=== PATIENT | male | born 1980 | race Caucasian/White ===

== ENCOUNTER 2019-05-02 00:35 | Emergency (ER) | payer OTHER, SELFPAY ==
[2019-05-02 00:52] VITALS: BP 180/95; PULSE 101; RESP 20; TEMP 36.6; O2SAT 99
--- NOTE | 2019-05-02 01:00 | ED.NAVMDI ---
HPI - Nausea/Vomiting/Diarrhea General Chief complaint: Nausea/Vomiting/Diarrhea Stated complaint: vomiting Time Seen by Provider: 05/02/19 00:45 Source: patient Mode of arrival: ambulatory Limitations: no limitations History of Present Illness HPI Narrative: Carrington is a 38-year-old male patient. He presents ambulatory to the emergency room. He states that he has been feeling sick orally yesterday. He started vomiting this evening. He has had about 8-10 episodes of watery emesis this evening. There is no blood in the emesis. He has no diarrhea. Denies abdominal pain. He has had congestion for past couple of days. Carrington states that he was diagnosed to have type 2 diabetes a few years ago. Was on Januvia and glimepiride. However he has not taken these medications for last 3 years or so. MD elicited complaint: nausea, vomiting and other ( No diarrhea) Pertinent past history: abdominal surgery Onset (ago): day(s) (1 day) Description of vomiting: watery Associated nausea: Yes Associated abdominal pain: No Location of pain: none Exacerbating factors: none Relieving factors: none Context: other ( no recent travel. Has had cholecystectomy.) Associated symptoms: denies other symptoms Related Data Allergies Allergy/AdvReac Type Severity Reaction Status Date / Time tramadol Allergy Hives Verified 05/02/19 00:51 Review of Systems Review of Systems: All systems reviewed & are unremarkable except as noted in HPI and below Constitutional: Constitutional: Reports as per HPI, Reports no additional constitutional complaints, Denies chills and Denies fever(s) Eyes: Eyes: Reports as per HPI, Reports no additional eye complaints and Denies change in vision ENT: Reports system reviewed and no additional complaints, except as documented, Denies dysphagia, Denies vertigo, Denies dizziness, Denies epistaxis and Denies sore throat Cardiovascular: Cardiovascular: Reports as per HPI and Reports no additional cardiovascular complaints Respiratory: Respiratory: Reports as per HPI, Reports no additional respiratory complaints, Denies cough and Denies dyspnea Gastrointestinal: Gastrointestinal: Reports as per HPI, Denies diarrhea, Reports nausea and Reports vomiting Genitourinary: Genitourinary: Reports no additional male genitourinary complaints, Denies hematuria and Denies dysuria Musculoskeletal: Musculoskeletal: Reports no additional musculoskeletal complaints, Denies back pain and Denies muscle cramps Integumentary/Breasts: Skin/Breast: Reports system reviewed and no additional complaints, except as docu, Reports as per HPI, Denies erythema and Denies rash Neurologic: Reports system reviewed and no additional complaints, except as documented, Denies vertigo, Denies dizziness and Denies syncope Psychiatric: Psychiatric: Reports no additional psychiatric complaints and Reports anxiety Endocrine: Comments: History of type 2 diabetes Hematologic/Lymphatic: Hematologic/Lymphatic: Reports no additional hematologic/lymphatic complaints, Denies easy bleeding and Denies easy bruising Allergic/Immunologic: Allergic/Immunologic: Reports no additional allergic/immunologic complaints, Reports as per HPI, Denies lip swelling and Denies tongue swelling PMFSH Past Medical History Medical History (Updated 05/02/19 @ 02:45 by Akash Mackenzie MD) Hypertension Type 2 diabetes mellitus Surgical History Surgical History (Updated 05/02/19 @ 01:11 by Akash Mackenzie MD) History of cholecystectomy Social History Social History (Updated 02/12/19 @ 22:48 by Aleksander Leigh MD) Smoking status: Never smoker Alcohol intake: never Substance use: never Gender identity (if verbalized by the patient): Male Exam Const: General: no acute distress ( mild distress); No diaphoretic Nutritional Appearance: well nourished and obese Limitations: no limitations HENMT: Head: normal to inspection Ears: TM's normal bilaterally and E
[2019-05-02 01:20] LABS: Basophils Absolute Auto 0.05 K/mm3 (0.00-0.10); Basophils Percent Auto 0.4 % (0.0-1.0); Eosinophils Absolute Auto 0.02 K/mm3 (0.02-0.50); Eosinophils Percent Auto 0.1 % (1.0-6.0); Hematocrit 44.7 % (40.0-54.0); Hemoglobin 15.4 g/dL (14.0-18.0); Immature Granulocyte Absolute 0.07 K/mm3 (0.00-0.00); Immature Granulocyte Percent A 0.5 % (0.0-0.0); Lymphocytes Absolute Auto 1.88 K/mm3 (1.10-4.50); Lymphocytes Percent Auto 13.7 % (18.0-42.0); Mean Corpuscular HGB Conc 34.5 g/dL (32.0-36.0); Mean Corpuscular Hemoglobin 28.9 pg (27.0-31.0); Mean Corpuscular Volume 83.9 fL (78.0-102.0); Mean Platelet Volume 10.8 fl (8.7-11.0); Monocytes Absolute Auto 0.98 K/mm3 (0.10-0.90); Monocytes Percent Auto 7.1 % (2.0-11.0); Neutrophils Absolute Auto 10.7 K/mm3 (1.7-7.2); Neutrophils Percent Auto 78.2 % (50.0-70.0); Platelet Count Result 244 K/mm3 (150-420); Red Blood Count 5.33 M/mm3 (4.70-6.10); Red Cell Distribution Width 12.6 % (11.6-14.4); White Blood Count 13.7 K/mm3 (4.8-10.8)
[2019-05-02] MEDS: ONDANSETRON INJ 4 MG/2 ML VIAL IV PUSH (01:20)
[2019-05-02] MEDS: SODIUM CHLORIDE 0.9% IV 1,000 ML 999 ML IV CONT ×2 (01:21→02:15)
[2019-05-02 01:33] LABS: Hemoglobin A1C 10.8 % (<5.7)
[2019-05-02 01:40] LABS: Alanine Aminotransferase 46 U/L (16-63); Albumin Level 4.4 g/dL (3.4-5.0); Alkaline Phosphatase 84 U/L (46-116); Aspartate Amino Transferase 15 U/L (15-37); Bilirubin,Total 0.5 mg/dL (0.00-1.00); Blood Urea Nitrogen 5 mg/dL (7-18); Calcium 9.4 mg/dL (8.5-10.1); Carbon Dioxide 23 mmol/L (21-32); Chloride 98 mmol/L (98-108); Estimated CRCL calculation 153 ml/min; Estimated Glomerular Filt Rate > 60; Glucose 291 mg/dL (70-99); Lipase 98 U/L (73-393); Osmolality Calculated 292 mOsm/kg (285-295); Sodium 137 mmol/L (136-145); Total Protein 8.8 g/dL (6.4-8.2)
[2019-05-02 01:46] LABS: Appearance Urine Clear (Clear); Bilirubin Urine Negative (Negative); Color Urine Yellow (Yellow); Glucose Urine UA 3+ (Negative); Ketones Urine 2+ (Negative); Leukocyte Esterase Ur Negative LEU/UL (Negative); Nitrate Urine Negative (Negative); Protein Urine 2+ (Negative); Specific Grav Ur >= 1.030 (1.010-1.020); Urobilinogen Urine 0.2 mg/dL (0.2-1.0)
[2019-05-02 01:52] LABS: Add Urine Microscopic? YES; Bacteria Urine None seen /hpf; Blood Urine Trace-Intact (Negative); RBC Urine 0-2 /hpf (0-2); Squamous Epithelial Cell Urine None seen /hpf (Few); WBC Urine 0-3 /hpf (0-3)
[2019-05-02] MEDS: KETOROLAC 30 MG/ML VIAL (*BKC) IV PUSH (02:14)
[2019-05-02 02:34] LABS: Influenza Control Valid (Valid)
[2019-05-02 03:02] VITALS: BP 146/82; PULSE 81; RESP 18; O2SAT 99
== END 2019-05-02 03:06 | disposition home or self-care (01) ==
PROVIDERS: Emergency Provider Surgery
DX: E11.9 Type 2 diabetes mellitus without complications (principal); J01.10 Acute frontal sinusitis, unspecified
CPT/HCPCS: 36415; 80053; 81001; 83036; 83690; 85025; 87804; 96361; 96374; 96375; 99283; 99284; J1885; J2405; J7030

== ENCOUNTER 2019-05-02 16:57 | Emergency (ER) | payer OTHER, SELFPAY ==
--- NOTE | ~2019-05-02 | CT_ITS ---
EXAMINATION: CT sinus w con DATE: 05/02/2019 18:04 INDICATION: Sinus infection, facial pain TECHNIQUE: Computed tomography (CT) of the paranasal sinuses was performed after the administration o f 75 cc of Omnipaque 350 intravenous contrast. The dose-length product (DLP) was 208.19 mGy-cm. Itera tive reconstruction was used. COMPARISON: None FINDINGS: There is normal development and pneumatization of the paranasal sinuses. An air-fluid level is present in the right maxillary sinus. There is obstruction of the ostiomeatal complex on the righ t. There is minimal opacification of the ethmoidal air cells. The left maxillary sinus and bilateral sphenoid sinuses are clear. The mastoid air cells are clear. The nasal septum is midline. No facial f racture is identified. The globes are normal. Visualized soft tissues are unremarkable. No abnormal e nhancement is present. IMPRESSION: 1. Right maxillary and ethmoidal sinusitis. Reviewed, dictated and finalized at [facility]. N/SPA MANAGER
[2019-05-02 17:11] VITALS: BP 181/107; PULSE 105; RESP 18; TEMP 36.6; O2SAT 99
--- NOTE | 2019-05-02 17:25 | ECG_ITS ---
Measurements Intervals [place] Rate: 96 P: 51 MT: 145 QRS: 24 QRSD: 102 T: 29 QT: 356 QTc: 451 Interpretive Statements SINUS RHYTHM NORMAL ECG Electronically Signed On 05-03-2019 9:22:37 INFORMATION LEAD by Eliu Dill D.O.
[2019-05-02] MEDS: SODIUM CHLORIDE 0.9% IV 1,000 ML 999 ML IV CONT (17:40)
[2019-05-02] MEDS: ONDANSETRON INJ 4 MG/2 ML VIAL IV PUSH (17:41)
[2019-05-02] MEDS: HYDROMORPHONE HCL 2 MG/ML VIAL 0.5 MG IV PUSH (17:42)
[2019-05-02 17:45] LABS: Basophils Absolute Auto 0.07 K/mm3 (0.00-0.10); Basophils Percent Auto 0.5 % (0.0-1.0); Eosinophils Absolute Auto 0.03 K/mm3 (0.02-0.50); Eosinophils Percent Auto 0.2 % (1.0-6.0); Hemoglobin 15.2 g/dL (14.0-18.0); Immature Granulocyte Absolute 0.07 K/mm3 (0.00-0.00); Immature Granulocyte Percent A 0.5 % (0.0-0.0); Lymphocytes Absolute Auto 2.07 K/mm3 (1.10-4.50); Lymphocytes Percent Auto 14.1 % (18.0-42.0); Mean Corpuscular HGB Conc 33.8 g/dL (32.0-36.0); Mean Corpuscular Hemoglobin 28.7 pg (27.0-31.0); Mean Corpuscular Volume 84.9 fL (78.0-102.0); Mean Platelet Volume 10.5 fl (8.7-11.0); Monocytes Percent Auto 6.1 % (2.0-11.0); Neutrophils Absolute Auto 11.6 K/mm3 (1.7-7.2); Neutrophils Percent Auto 78.6 % (50.0-70.0); Platelet Count Result 249 K/mm3 (150-420); Red Cell Distribution Width 12.9 % (11.6-14.4); White Blood Count 14.7 K/mm3 (4.8-10.8)
--- NOTE | 2019-05-02 17:49 | ED.HA ---
HPI - Headache General Chief Complaint: Headache Stated Complaint: sinus infection Time Seen by Provider: 05/02/19 17:20 Source: patient Mode of arrival: ambulatory Limitations: no limitations History of Present Illness HPI Narrative: 38-year-old man with untreated hypertension and diabetes comes in today complaining of right-sided head pain which involves his right ear, right cheek, right forehead, right eye and his right upper teeth. He states that his symptoms started 3 days ago and have gotten progressively worse. He had vomiting when he presented here last night and had some dry heaves this afternoon. Sjci-gat-nwsnrtt pain medications are not helping. He denies diarrhea, fever, changes in vision, syncope, stiff neck, or difficulty hearing. He states that he has had some burning right-sided chest pain that does not get better or worse with exertion and is not associated with shortness of breath or sweating. MD elicited complaint: headache Pertinent past history: hypertension Onset (ago): day(s) (3) Onset description: gradually Location: right, frontal, temporal, facial and maxillary Severity: severe Quality & Timing: throbbing Exacerbating factors: none Relieving factors: nothing Context: occurred at rest and recent URI Associated symptoms: nausea and vomiting Treatments prior to arrival: acetaminophen and other ( OTC decongestant) Related Data Allergies Allergy/AdvReac Type Severity Reaction Status Date / Time tramadol Allergy Hives Verified 05/02/19 00:51 Review of Systems Constitutional: Constitutional: Denies chills, Denies fatigue, Denies fever(s) and Denies weakness Eyes: Eyes: Denies change in vision and Denies photophobia ENT: Denies dysphagia, Reports nasal congestion and Denies sore throat Cardiovascular: Cardiovascular: Reports chest pain and Denies radiating jaw, neck or arm pain Respiratory: Respiratory: Denies cough, Denies dyspnea and Denies wheezing Gastrointestinal: Gastrointestinal: Denies abdominal pain, Denies diarrhea, Reports nausea and Reports vomiting Genitourinary: Genitourinary: Denies hematuria, Denies oliguria and Denies dysuria Musculoskeletal: Musculoskeletal: Denies back pain, Denies arthralgias, Denies joint swelling and Denies muscle cramps Integumentary/Breasts: Skin/Breast: Denies pruritus, Denies erythema and Denies rash Neurologic: Reports as per HPI, Denies vertigo, Denies dizziness, Denies syncope, Reports headache(s), Denies focal weakness and Denies numbness Psychiatric: Psychiatric: Denies anxiety and Denies depression Endocrine: Endocrine: Denies polydipsia and Denies polyuria Hematologic/Lymphatic: Hematologic/Lymphatic: Denies easy bleeding and Denies easy bruising Allergic/Immunologic: Allergic/Immunologic: Denies lip swelling and Denies wheezing PMFSH Past Medical History Medical History Hypertension Type 2 diabetes mellitus Surgical History Surgical History History of cholecystectomy Social History Social History Smoking status: Never smoker Alcohol intake: never Substance use: never Gender identity (if verbalized by the patient): Male Exam Const: General: healthy appearing and alert Nutritional Appearance: obese Orientation/consciousness: patient oriented x3 Other: moderate acute pain distress HENMT: Ears: external ears normal, TM's normal bilaterally and EAC's normal Face and sinus: sinus tenderness maxillary ( right TM) Mouth: Yes Normal oral and palatal mucosa present Throat: posterior oropharynx normal and uvula midline Eyes: Conjunctivae: conjunctivae normal Pupils: Equal, round and reactive pupils present EOM: EOMs intact bilaterally Direct Ophthalmoscopy: No photophobia Neck: Neck: normal visual inspection and no lymphadenopathy Resp: Effort & Inspection:
[2019-05-02 18:09] LABS: Anion Gap 19.2 mmol/L (7-16); Blood Urea Nitrogen 7 mg/dL (7-18); Calcium 9.6 mg/dL (8.5-10.1); Carbon Dioxide 22 mmol/L (21-32); Chloride 99 mmol/L (98-108); Estimated CRCL calculation 162 ml/min; Estimated Glomerular Filt Rate > 60; Glucose 270 mg/dL (70-99); Lipase 58 U/L (73-393); Osmolality Calculated 290 mOsm/kg (285-295); Potassium 4.2 mmol/L (3.5-5.1); Sodium 136 mmol/L (136-145)
[2019-05-02 18:11] LABS: Troponin I < 0.02 ng/mL (0.00-0.056)
[2019-05-02 18:17] VITALS: BP 150/79; PULSE 90
== END 2019-05-02 18:58 | disposition home or self-care (01) ==
PROVIDERS: Emergency Provider Emergency Medicine
DX: E11.9 Type 2 diabetes mellitus without complications (principal); I10 Essential (primary) hypertension; J01.10 Acute frontal sinusitis, unspecified
CPT/HCPCS: 36415; 70487; 80048; 83690; 84484; 85025; 93005; 96361; 96365; 96375; 99284; J0696; J1170; J2405; J7030; Q9965

== ENCOUNTER 2019-05-31 03:48 | Emergency (ER) | payer OTHER, SELFPAY ==
--- NOTE | ~2019-05-31 | CT_ITS ---
EXAMINATION: CT abdomen pelvis wo con DATE: 05/31/2019 07:19 INDICATION: Left flank pain. Microhematuria. TECHNIQUE: Computed tomography (CT) of the abdomen and pelvis was performed without intravenous contr ast. Automated exposure control and iterative reconstruction technique were employed. Exam dose: 804 .10 mGy-cm total exam DLP. COMPARISON: 02/12/2019 CT abdomen pelvis with IV contrast material FINDINGS: The lung bases are clear of consolidation. Heart size is within normal range. No pericardia l or pleural effusion. Status post cholecystectomy. No bile duct or pancreatic duct dilatation. Hepatic steatosis. No hepati c, splenic, pancreatic, adrenal or renal space-occupying mass lesion is evident on this limited nonco ntrast examination. There are multiple bilateral nonobstructing kidney stones. There is moderate left hydronephrosis seco ndary to an obstructing 5.5 x 4.0 x 8.0 mm calculus at the left ureteropelvic junction. No right ureteral calculus or right-sided hydroureteronephrosis. Normal caliber of the abdominal aorta. No intraperitoneal or retroperitoneal or pelvic mass lesion or adenopathy or ascites. Small bilateral fat-containing inguinal hernias. Normal appendix. No bowel obstruction or intraperitoneal free air. Very small fat-containing umbilical hernia. Diffuse idiopathic skeletal hyperostosis of the included lower thoracic spine. No suspicious osteolyt ic or osteoblastic lesions are noted. IMPRESSION: Moderate left hydronephrosis secondary to obstructing left ureteropelvic junction 5.5 x 4 x 8 mm calculus Bilateral nephrolithiasis Status post cholecystectomy Hepatic steatosis Reviewed, dictated and finalized at [facility]. Reviewed, dictated and finalized at [facility]. IMPRESSION: Moderate left hydronephrosis secondary to obstructing left uretero pelvic junction 5.5 x 4 x 8 mm calculus Bilateral nephrolithiasis Status post cholecystectomy Hepatic steatosis
[2019-05-31 03:59] VITALS: BP 170/96; PULSE 104; RESP 18; TEMP 37.2; O2SAT 97
--- NOTE | 2019-05-31 04:07 | ED.BACK ---
HPI - Back Pain/Injury General Chief Complaint: Back Pain/Injury Stated Complaint: kidney stones Time Seen by Provider: 05/31/19 04:07 Source: patient Mode of arrival: ambulatory Limitations: no limitations History of Present Illness HPI Narrative: 38-year-old man with a history of kidney stones comes in today complaining of left flank pain that been present for the last 4 days. Patient states he felt feverish and that he has had difficulty urinating. He denies any hematuria. He also has some pain on his right flank tonight. He has had no diarrhea, rash, bruising, or radicular pain. MD elicited complaint: back pain Pertinent past history: kidney stones Onset (ago): day(s) (4) Timing: constant Severity: moderate Quality: sharp Location: left flank and right flank Radiation: none Exacerbating factors: none Relieving factors: none Context: history of kidney stones Associated symptoms: fever Treatments prior to arrival: NSAIDS Related Data Home Medications Medication Instructions Recorded Confirmed glimepiride 2 mg PO DAILY 05/31/19 05/31/19 lisinopril 10 mg PO DAILY 05/31/19 05/31/19 Allergies Allergy/AdvReac Type Severity Reaction Status Date / Time tramadol Allergy Hives Verified 05/02/19 00:51 Review of Systems Constitutional: Constitutional: Reports fever(s) and Reports malaise Eyes: Eyes: Denies blurry vision, Denies change in vision and Denies diplopia ENT: Denies otalgia, Reports nasal congestion, Denies sore throat and Denies throat swelling Cardiovascular: Cardiovascular: Denies chest pain, Denies leg edema and Denies radiating jaw, neck or arm pain Respiratory: Respiratory: Denies chest congestion, Reports cough and Denies dyspnea Gastrointestinal: Gastrointestinal: Reports abdominal pain, Denies diarrhea, Reports nausea and Reports vomiting Genitourinary: Genitourinary: Denies hematuria, Denies dysuria and Reports flank pain Musculoskeletal: Musculoskeletal: Denies arthralgias and Denies joint swelling Integumentary/Breasts: Skin/Breast: Denies pruritus, Denies erythema and Denies rash Neurologic: Reports Normal hearing present, Denies vertigo, Denies dizziness and Denies syncope Psychiatric: Psychiatric: Denies anxiety and Denies depression Allergic/Immunologic: Allergic/Immunologic: Denies urticaria, Denies throat swelling and Denies wheezing PMFSH Past Medical History Medical History (Updated 05/31/19 @ 06:47 by Aleksander Leigh MD) Hypertension Type 2 diabetes mellitus Urolithiasis Surgical History Surgical History History of cholecystectomy Social History Social History Smoking status: Never smoker Alcohol intake: never Substance use: never Gender identity (if verbalized by the patient): Male Exam Const: General: cooperative, alert and other (mild acute distress) Nutritional Appearance: obese Orientation/consciousness: patient oriented x3 Limitations: no limitations HENMT: Head: normal to inspection, normocephalic and atraumatic Mouth: Yes Normal oral and palatal mucosa present and Yes oropharynx normal Eyes: Conjunctivae: conjunctivae normal Pupils: Equal, round and reactive pupils present EOM: EOMs intact bilaterally Resp: Effort & Inspection: normal respiratory effort, no respiratory distress and no stridor Auscultation: clear to auscultation bilaterally, no rales, no rhonchi and no wheezes Cardio: Rate: regular rate Rhythm: regular rhythm Heart sounds: no murmurs Peripheral pulses: Peripheral pulses 2+ throughout GI: Inspection: non-distended GI Palp: Yes abdominal tenderness (mild at left flank) Auscultation: normal bowel sounds Back/Spine/Pelvis: Back: CVA tenderness (mild left) Skin: General skin exam: normal color, no rashes or lesions noted and turgor normal Neuro: General: patient oriented x3 Cranial nerves: Yes CN's II-XII
[2019-05-31] MEDS: KETOROLAC 30 MG/ML VIAL (*BKC) IV PUSH (04:35)
[2019-05-31 04:36] LABS: Basophils Absolute Auto 0.03 K/mm3 (0.00-0.10); Basophils Percent Auto 0.4 % (0.0-1.0); Eosinophils Absolute Auto 0.11 K/mm3 (0.02-0.50); Eosinophils Percent Auto 1.6 % (1.0-6.0); Hemoglobin 14.1 g/dL (14.0-18.0); Immature Granulocyte Absolute 0.02 K/mm3 (0.00-0.00); Immature Granulocyte Percent A 0.3 % (0.0-0.0); Lymphocytes Absolute Auto 2.75 K/mm3 (1.10-4.50); Lymphocytes Percent Auto 40.4 % (18.0-42.0); Mean Corpuscular HGB Conc 34.4 g/dL (32.0-36.0); Mean Corpuscular Hemoglobin 28.8 pg (27.0-31.0); Mean Corpuscular Volume 83.8 fL (78.0-102.0); Mean Platelet Volume 10.5 fl (8.7-11.0); Monocytes Absolute Auto 0.54 K/mm3 (0.10-0.90); Monocytes Percent Auto 7.9 % (2.0-11.0); Neutrophils Absolute Auto 3.4 K/mm3 (1.7-7.2); Neutrophils Percent Auto 49.4 % (50.0-70.0); Platelet Count Result 213 K/mm3 (150-420); Red Blood Count 4.89 M/mm3 (4.70-6.10); Red Cell Distribution Width 12.4 % (11.6-14.4); White Blood Count 6.8 K/mm3 (4.8-10.8)
[2019-05-31] MEDS: ONDANSETRON INJ 4 MG/2 ML VIAL IV PUSH (04:36)
[2019-05-31] MEDS: SODIUM CHLORIDE 0.9% IV 1,000 ML 999 ML IV CONT (04:36)
[2019-05-31 04:39] LABS: Add Urine Microscopic? YES; Appearance Urine Clear (Clear); Bilirubin Urine Negative (Negative); Blood Urine 2+ (Negative); Color Urine Yellow (Yellow); Glucose Urine UA 2+ (Negative); Ketones Urine Trace (Negative); Leukocyte Esterase Ur Negative (Negative); Nitrate Urine Negative (Negative); Protein Urine Negative (Negative); Specific Grav Ur >= 1.030 (1.010-1.020); Urobilinogen Urine 0.2 mg/dL (0.2-1.0)
[2019-05-31 04:44] LABS: Bacteria Urine Trace /hpf; RBC Urine 21-50 /hpf (0-2); Squamous Epithelial Cell Urine None seen /hpf (Few); WBC Urine 0-3 /hpf (0-3)
[2019-05-31 04:49] LABS: Partial Thromboplastin Time 24.2 SEC (22.3-31.6); Prothrombin Time 9.9 Seconds (9.64-11.0)
[2019-05-31 04:52] LABS: Alanine Aminotransferase 71 U/L (16-63); Albumin Level 3.8 g/dL (3.4-5.0); Alkaline Phosphatase 67 U/L (46-116); Anion Gap 12.7 mmol/L (7-16); Aspartate Amino Transferase 25 U/L (15-37); Bilirubin,Total 0.4 mg/dL (0.00-1.00); Blood Urea Nitrogen 9 mg/dL (7-18); Calcium 8.7 mg/dL (8.5-10.1); Carbon Dioxide 26 mmol/L (21-32); Chloride 104 mmol/L (98-108); Estimated CRCL calculation 126 ml/min; Estimated Glomerular Filt Rate > 60; Glucose 255 mg/dL (70-99); Lipase 96 U/L (73-393); Osmolality Calculated 295 mOsm/kg (285-295); Potassium 3.7 mmol/L (3.5-5.1); Sodium 139 mmol/L (136-145); Total Protein 7.3 g/dL (6.4-8.2)
[2019-05-31 06:32] VITALS: BP 134/86; PULSE 85; RESP 20; O2SAT 99
== END 2019-05-31 06:39 | disposition home or self-care (01) ==
PROVIDERS: Emergency Provider Emergency Medicine; PCP Nurse Practitioner
DX: N20.9 Urinary calculus, unspecified (principal)
CPT/HCPCS: 36415; 74176; 80053; 81001; 83690; 85025; 85610; 85730; 87086; 96361; 96374; 96375; 99283; 99284; J1885; J2405; J7030

== ENCOUNTER 2019-06-01 19:37 | Observation (INO) | payer OTHER, SELFPAY ==
--- NOTE | ~2019-06-01 | XR_ITS ---
XR abdomen/kub 1V DATE: 06/02/2019 11:07 INDICATION: Left-sided kidney stone TECHNIQUE: AP projection, 2 views COMPARISON: 05/31/2019 CT abdomen pelvis noncontrast examination FINDINGS: Previously reported 5.5 x 4 x 8 mm calculus reported in left ureteropelvic junction is now situated at the left ureterovesical junction approximately. Bilateral calcified renal stones are noted. Surgical clips, right upper quadrant, consistent with cholecystectomy. No evidence of bowel obstruction. IMPRESSION: Calcified calculus at left ureterovesical junction (previously at left ureteropelvic junc tion on 05/31/2019) Bilateral nephrolithiasis Reviewed, dictated and finalized at [facility]. Reviewed, dictated and finalized at [facility]. IMPRESSION: Calcified calculus at left ureterovesical junction (previously at l eft ureteropelvic junction on 05/31/2019) Bilateral nephrolithiasis
[2019-06-01 19:45] VITALS: BP 197/107; PULSE 74; RESP 17; TEMP 36.6; O2SAT 95
--- NOTE | 2019-06-01 19:54 | ED.BACK ---
HPI - Back Pain/Injury General Chief Complaint: Urogenital-Male Stated Complaint: kidney stones Source: patient Mode of arrival: ambulatory Limitations: no limitations History of Present Illness HPI Narrative: This is a 38-year-old patient that was seen in the emergency department yesterday on May 31, 2019 for kidney stone that was seen on CT scan that measured about 5x4 in the left UVJ with moderate hydronephrosis was given pain medication and tamsulosin at discharge the patient did not follow-up with his primary care physician, felt tired and instead of calling his primary care physician went to sleep. Patient pain in the left flank area persisted with radiation into his left groin area pain rated about a 7/10 was given pain medication at discharge with minimal relief. Currently there is some mild nausea with no vomiting no chest pain, no shortness of breath with no dysuria. Patient also has a history of diabetes and history of hypertension. Has had a decreased appetite secondary to pain and fatigue. MD elicited complaint: back pain Onset (ago): day(s) Timing: intermittent Severity: similar to previous episodes Pain scale (0-10): 7 Quality: dull Location: left flank and left lower back Exacerbating factors: none Relieving factors: medication Related Data Home Medications Medication Instructions Recorded Confirmed glimepiride 2 mg PO DAILY 05/31/19 06/01/19 lisinopril 10 mg PO DAILY 05/31/19 06/01/19 Allergies Allergy/AdvReac Type Severity Reaction Status Date / Time tramadol Allergy Hives Verified 05/02/19 00:51 Review of Systems Review of Systems: All systems reviewed & are unremarkable except as noted in HPI and below PMFSH Past Medical History Medical History Hypertension Type 2 diabetes mellitus Urolithiasis Surgical History Surgical History History of cholecystectomy Social History Social History Smoking status: Never smoker Alcohol intake: never Substance use: never Gender identity (if verbalized by the patient): Male Exam Const: General: no acute distress HENMT: Head: normal to inspection Eyes: Conjunctivae: conjunctivae normal Pupils: Equal, round and reactive pupils present Neck: Neck: normal visual inspection Chest: Chest palpation & inspection: normal inspection of the chest Resp: Effort & Inspection: normal respiratory effort Cardio: Rate: regular rate Rhythm: regular rhythm GI: Inspection: distended Auscultation: normal bowel sounds : General: Yes CVA tenderness Urinary Catheter: Urinary Catheter: urine dark Back/Spine/Pelvis: Back: CVA tenderness Skin: General skin exam: normal color Rashes: no rashes Neuro: General: patient oriented x3, moves all extremities and no meningeal signs Critical Care Time Critical Care Time Critical Care Time: No Discharge Plan Discharge Clinical Impression: Urolithiasis Qualifiers: Urinary calculus location: other lower urinary tract location Qualified Code(s): N21.8 - Other lower urinary tract calculus Prescriptions: No Action glimepiride 2 mg tablet 2 mg PO DAILY RF: 0 lisinopril 10 mg tablet 10 mg PO DAILY RF: 0 tamsulosin 0.4 mg Capsule 0.4 mg PO DAILY Qty: 14 RF: 0 Time of Disposition: 20:23
[2019-06-01] MEDS: KETOROLAC 30 MG/ML VIAL (*BKC) IV PUSH (19:55)
[2019-06-01] MEDS: ONDANSETRON INJ 4 MG/2 ML VIAL IV PUSH (19:55)
[2019-06-01] MEDS: SODIUM CHLORIDE 0.9% IV 1,000 ML 999 ML IV CONT (19:55)
[2019-06-01 20:48] VITALS: BP 197/101; PULSE 79; O2SAT 96
--- NOTE | 2019-06-01 20:48 | PC.NURSE ---
IN FLUIDS INFUSING TO FLOOR
--- NOTE | 2019-06-01 20:49 | PCDIET ---
IV FLUIDS INFUSING TO FLOOR
[2019-06-01] MEDS: SODIUM CHLORIDE 0.9% IV 1,000 ML 75 ML IV CONT (21:14)
[2019-06-01] MEDS: AMLODIPINE BESYLATE 5 MG TABLET 10 MG (21:18)
[2019-06-01 22:16] VITALS: BP 147/92; PULSE 97; RESP 16; TEMP 36.7; O2SAT 98; BMI 37.0
[2019-06-02 00:46] VITALS: BP 152/96; PULSE 78; RESP 18; TEMP 36.9; O2SAT 99
[2019-06-02 05:45] VITALS: BP 168/96; PULSE 78; RESP 16; TEMP 36.9; O2SAT 97
[2019-06-02 05:46] LABS: Basophils Absolute Auto 0.02 K/mm3 (0.00-0.10); Basophils Percent Auto 0.2 % (0.0-1.0); Eosinophils Absolute Auto 0.01 K/mm3 (0.02-0.50); Eosinophils Percent Auto 0.1 % (1.0-6.0); Hematocrit 40.1 % (40.0-54.0); Hemoglobin 13.8 g/dL (14.0-18.0); Immature Granulocyte Absolute 0.05 K/mm3 (0.00-0.00); Immature Granulocyte Percent A 0.4 % (0.0-0.0); Lymphocytes Absolute Auto 1.19 K/mm3 (1.10-4.50); Lymphocytes Percent Auto 10.4 % (18.0-42.0); Mean Corpuscular HGB Conc 34.4 g/dL (32.0-36.0); Mean Corpuscular Hemoglobin 28.8 pg (27.0-31.0); Mean Corpuscular Volume 83.7 fL (78.0-102.0); Mean Platelet Volume 10.7 fl (8.7-11.0); Monocytes Absolute Auto 1.06 K/mm3 (0.10-0.90); Monocytes Percent Auto 9.2 % (2.0-11.0); Neutrophils Absolute Auto 9.1 K/mm3 (1.7-7.2); Neutrophils Percent Auto 79.7 % (50.0-70.0); Platelet Count Result 198 K/mm3 (150-420); Red Blood Count 4.79 M/mm3 (4.70-6.10); Red Cell Distribution Width 12.4 % (11.6-14.4); White Blood Count 11.5 K/mm3 (4.8-10.8)
[2019-06-02 06:02] LABS: Alanine Aminotransferase 69 U/L (16-63); Albumin Level 3.5 g/dL (3.4-5.0); Alkaline Phosphatase 62 U/L (46-116); Anion Gap 13.9 mmol/L (7-16); Aspartate Amino Transferase 26 U/L (15-37); Bilirubin,Total 0.6 mg/dL (0.00-1.00); Blood Urea Nitrogen 9 mg/dL (7-18); Carbon Dioxide 25 mmol/L (21-32); Chloride 103 mmol/L (98-108); Estimated CRCL calculation 117 ml/min; Estimated Glomerular Filt Rate > 60; Glucose 175 mg/dL (70-99); Osmolality Calculated 288 mOsm/kg (285-295); Potassium 3.9 mmol/L (3.5-5.1); Sodium 138 mmol/L (136-145); Total Protein 6.5 g/dL (6.4-8.2)
[2019-06-02 06:05] LABS: Calcium 8.6 mg/dL (8.5-10.1)
[2019-06-02 07:48] LABS: Glucose Point of Care 155 (65-105)
[2019-06-02 07:57] VITALS: BP 152/75; PULSE 89; RESP 16; TEMP 37.4; O2SAT 97
--- NOTE | 2019-06-02 08:20 | PC.NURSE ---
Patient voids in urinal. Urine strained. No stone
[2019-06-02] MEDS: TAMSULOSIN HCL 0.4 MG CAPSULE PO (09:39)
[2019-06-02] MEDS: AMLODIPINE BESYLATE 5 MG TABLET 10 MG PO (09:39)
[2019-06-02] MEDS: lisinopriL 10 MG TABLET PO (09:39)
[2019-06-02] MEDS: AMLODIPINE BESYLATE 5 MG TABLET PO (09:39)
[2019-06-02] MEDS: GLIMEPIRIDE 2 MG TABLET PO (09:39)
--- NOTE | 2019-06-02 09:53 | PM.SD ---
Same Day Admit/Disch: HPI History of Present Illness Chief complaint: kidney stones Narrative: RELL STOLL is a 38 year old male that presented to the ED yesterday due to severe the right pain that radiated to his left groin and nausea. patient has a past medical history of hypertension, diabetes type 2, and urolithiasis. Patient had previously came to ED May 31, [address] indicated Moderate left hydronephrosis secondary to obstructing left ureteropelvic junction 5.5 x 4 x 8 mm calculus. at that time patient was given Flomax with pain medication and instructed to follow-up with his PCP. Patient did not follow-up with PCP and return to the ED on 06/01/2019. Patient was admitted treated for pain and nausea. Today patient's pain is controlled and his nausea has resolved. Patient agrees that he is ready for discharge and will follow-up with primary care physician. I will discharge him with pain medication, anti nausea medication and Flomax. Patient able to tolerate all meals , slept well and ambulate at baseline. Patient denies SOB, CP, palpitation, extremity numbness, lightheadness, dizziness, constipation, diarrhea, or chills or fever. Patient agree that they are ready for discharge and discharge plan. PLACED A CALL TO UROLOGY SPOKE WITH SUSAN JOSE CONCERNING PATIENT'S CONDITION. SUSAN ADVISED THAT PATIENT BE DISCHARGED WITH PAIN MEDICATION AND FLOMAX AND A STRAINER. PATIENT NOTES THAT HE HAS A STRAINER READY. ACCORDING TO CT AND KUB RESULTS STONE APPEARS TO BE PASSED. [facility] Past Medical History Medical History Hypertension Type 2 diabetes mellitus Urolithiasis Surgical History Surgical History History of cholecystectomy Social History Social History Smoking status: Never smoker Second hand tobacco smoke exposure: No Alcohol intake: current Substance use: never Substance use type: does not use Gender identity (if verbalized by the patient): Male Spiritual care concerns: No Agree to blood products: Yes Same Day Admit/Disch: Med Pre-admit Medications Home Medications Medication Instructions Recorded Confirmed Type glimepiride 2 mg PO DAILY 05/31/19 06/01/19 History lisinopril 10 mg PO DAILY 05/31/19 06/01/19 History tamsulosin 0.4 mg PO DAILY #14 cap 05/31/19 06/01/19 Rx hydrocodone-acetaminophen 1 tablet PO Q8H PRN #30 tablet 06/02/19 Rx ondansetron HCl [Zofran] 8 mg PO Q8H PRN #60 tablet 06/02/19 Rx Exam Narrative: Exam Narrative: General: A well-developed, well-nourished male sitting up in bed no acute distress. HEENT: Normocephalic, atraumatic. PERRL, EOMI. Sclerae anicteric. Oral mucosa moist. Oropharynx clear. Neck: Supple. Respiratory: Lungs are clear to auscultation bilaterally. Cardiovascular: Regular rate and rhythm with S1-S2. Gastrointestinal: Abdomen is soft, nontender, and nondistended with positive bowel sounds. No organomegaly. Skin: Warm, dry, and slightly pale.. No rash or lesions on limited exam. Extremities: No cyanosis, clubbing, or edema. Radial and pedal pulses intact. Neurological: Alert. Cranial nerves 2-12 are grossly intact. No gross focal deficits to casual conversation. Psychiatric: Pleasant and cooperative with normal mood and affect. Judgment and insight intact. DS: Data Data Completed and Pending Labs on day of discharge: Labs from last 24 hours 06/02/19 06/02/19 06/02/19 07:46 05:12 05:12 WBC 11.5 H RBC 4.79 Hgb 13.8 L Hct 40.1 MCV 83.7 MCH 28.8 MCHC 34.4 RDW 12.4 Plt Count 198 MPV 10.7 Immature Gran % (Auto) 0.4 H Neut % (Auto) 79.7 H Lymph % (Auto) 10.4 L [place] % (Auto) 9.2 Eos % (Auto) 0.1 L Baso % (Auto) 0.2 Lymph # (Auto) 1.19 [place] # (Auto) 1.06 H Eos # (Auto) 0.01 L Baso # (Auto)
--- NOTE | 2019-06-02 10:18 | PC.NURSE ---
Strained urine. No resulst
--- NOTE | 2019-06-02 11:01 | PC.NURSE ---
Patient transported off of floor for KUB
--- NOTE | 2019-06-02 11:10 | PC.NURSE ---
Patient transported back to floor from xray
--- NOTE | 2019-06-02 13:06 | PC.NURSE ---
Discharge paperwork expained to patient and . Script given for festus. F/U appointments made.
[2019-06-15 11:02] LABS: Glucose Point of Care 181 (65-105)
== END 2019-06-02 13:10 | disposition home or self-care (01) ==
LOC: CHSED 20:26 → CHS2ND 20:32
PROVIDERS: Admitting Provider Emergency Medicine; Emergency Provider Emergency Medicine; PCP Nurse Practitioner; Visit Provider Emergency Medicine
DX: N13.2 Hydronephrosis with renal and ureteral calculous obstruction (principal); R11.0 Nausea; I10 Essential (primary) hypertension; E11.9 Type 2 diabetes mellitus without complications
CPT/HCPCS: 36415; 74018; 80053; 85025; 96360; 96361; 96374; 96375; 99285; A9270; G0378; J1885; J2405; J7030

== ENCOUNTER 2019-10-31 18:08 | Inpatient (IN) | payer OTHER, SELFPAY ==
--- NOTE | ~2019-10-31 | US_ITS ---
US venous doppler [facility] DATE: 11/01/2019 13:44 INDICATION: Elevated d-dimer TECHNIQUE: Real time and color flow imaging. Doppler analysis. COMPARISON: None FINDINGS: The greater saphenous veins are patent. There is spontaneous and phasic flow in the deep veins, with normal augmentation and color flow signa l and normal compression. IMPRESSION: No evidence of deep venous thrombosis of the lower extremities Reviewed, dictated and finalized at Location A. Reviewed, dictated and finalized at location A.
--- NOTE | ~2019-10-31 | XR_ITS ---
EXAMINATION: XR chest 1V portable EXAM DATE: 10/31/2019 20:09 INDICATION: Weak sensitivity for 2 days, shortness of breath. TECHNIQUE: Portable AP frontal chest x-ray was obtained. There is no prior study for comparison. FINDINGS: The lungs are clear. There are no pleural effusions. Cardiac silhouette is prominent but magnified on this AP technique. There is no pneumothorax suspected. The bones and soft tissues are unremarkable. IMPRESSION: Unremarkable chest x-ray exam. Reviewed, dictated and finalized at location A.
--- NOTE | ~2019-10-31 | CT_ITS ---
EXAMINATION: CT abdomen pelvis w con DATE: 11/01/2019 13:02 INDICATION: Leukocytosis. Severe heartburn. TECHNIQUE: Computed tomography (CT) of the abdomen and pelvis was performed with 100 mL Omnipaque-350 intravenous contrast. Automated exposure control and iterative reconstruction technique were employe d. The dose-length product was 1405.91 mGy-cm. COMPARISON: 05/31/2019 FINDINGS: Lung bases are clear. Arch size is normal. No pericardial or pleural effusion. There is edematous wal l thickening the distal esophagus consistent with esophagitis. Diffuse hepatic steatosis. Cholecystec rey clips at the gallbladder fossa. Spleen, pancreas and bilateral adrenal glands are normal. Multip le bilateral nonobstructing renal stones with 9 stones the right kidney the largest measuring 7 mm in maximal diameter and 3 stones in the left kidney the largest measuring 3 mm in maximal diameter. The re are a few subcentimeter low-attenuation likely cysts in the bilateral kidneys which are too small to definitively characterize. Bowels including the appendix are normal. Bladder is normal. No free in traperitoneal gas or fluid. No pathologically enlarged abdominal or pelvic lymphadenopathy. Moderate thoracic and mild lumbar spondylosis. Bilateral fat-containing inguinal hernias, small on the right a nd tiny on the left. IMPRESSION: 1. Edematous wall thickening in the distal esophagus consistent with esophagitis which may be related to reflux given the provided history of heartburn. 2. Bilateral nonobstructing nephrolithiasis. Reviewed, dictated and finalized at location A. IMPRESSION: 1. Edematous wall thickening in the distal esophagus consistent with esophagiti s which may be related to reflux given the provided history of heartburn. 2. Bilateral nonobstructing nephrolithiasis.
--- NOTE | ~2019-10-31 | CT_ITS ---
EXAMINATION: CTA chest PE protocol EXAM DATE: 10/31/2019 23:03 INDICATION: Positive d-dimer. Shortness of breath. TECHNIQUE: Spiral CTA of the chest (pulmonary arteries) was performed with 100 cc Omnipaque 350 intr avenous contrast injection. Images were acquired during the pulmonary arterial phase. Coronal maxi mum intensity projection 3D-reconstructions were created by the technologist on dedicated workstation . Axial, coronal and sagittal reformatted images were reviewed. The dose-length product (DLP) for t his examination was 920.07 mGy-cm. The exposure was tailored according to patient size (auto mA exp osure control), and iterative reconstruction (ASIR) was used as additional dose reduction technique. There is no prior study for comparison. FINDINGS: There is suboptimal pulmonary arterial opacification and some respiratory motion. No centr al pulmonary emboli. Can't confidently evaluate segmental pulmonary arteries. No thoracic aortic dis section. The lungs are clear. There are no pleural or pericardial effusions. Tracheobronchial tr ee is patent. There is no mediastinal, hilar or axillary lymphadenopathy. There is no pneumothora x. Heart normal in size. No evidence of coronary arterial calcification. There are cholecystecto my clips. There is hepatic steatosis. There is thoracic spondylosis without osteoblastic or osteolyt ic lesions identified. IMPRESSION: 1. No central pulmonary emboli. Segmental vessels not confidently evaluated. 2. No acute cardiopulmonary findings. Reviewed, dictated and finalized at location A.
--- NOTE | ~2019-10-31 | XR_ITS ---
EXAMINATION: XR chest 2V DATE: 11/03/2019 09:39 INDICATION: Cough. Leukocytosis. TECHNIQUE: Frontal and lateral views of the chest were obtained on 3 radiographs. COMPARISON: Chest single view 10/31/2019 FINDINGS: The chest demonstrates clear lungs without pneumonia, pleural effusion, or pneumothorax. Th e heart size is normal. Surgical clips in the right upper quadrant are likely from cholecystectomy. IMPRESSION: 1. No acute cardiopulmonary disease. Reviewed, dictated and finalized at location B.
--- NOTE | ~2019-10-31 | CT_ITS ---
EXAMINATION: CT brain wo con EXAM DATE: 11/01/2019 21:13 INDICATION: Slow to move correspond. Transient alteration of awareness. TECHNIQUE: Spiral CT of the head was performed without contrast. Axial, coronal and sagittal images were reviewed. The dose-length product (DLP) for this examination was 605.33 mGy-cm. The exposure w as tailored according to patient size, and iterative reconstruction (ASIR) was used as additional dos e reduction technique. Correlation is made to sinus CT from 05/02/2019. FINDINGS: There is no acute intraparenchymal hemorrhage. No evidence of intraparenchymal brain mass lesion. No evidence of acute infarction. There is no mass effect or midline shift. The ventricles are normal in size. There are no extra-axial collections. There are no acute calvarial fractures. T he orbits are unremarkable. Soft tissue is unremarkable. The visualized sinuses and mastoid air usha ls are well aerated. IMPRESSION: 1. No acute intracranial findings. Reviewed, dictated and finalized at location A.
[2019-10-31 18:29] VITALS: BP 157/89; PULSE 115; RESP 20; TEMP 36.6; O2SAT 98
[2019-10-31 18:52] LABS: Glucose Point of Care 284 (65-105)
--- NOTE | 2019-10-31 19:53 | ED.GENADULT ---
HPI - General Adult General Chief complaint: Headache Stated complaint: tired,weak Source: patient Mode of arrival: ambulatory Limitations: no limitations History of Present Illness HPI narrative: [age] year old male with type 2 DM developed a headache (#3-4/10), fatigue, nausea and vomiting 4 days ago. The vomiting stopped 2 days ago. He has had no diarrhea. He comes in today feeling very thirsty and short of breath. He has had intermittent right upper quadrant abdominal discomfort, no pain presently. He has also had heartburn with frequent burping and pain with swallowing. He is a type 2 diabetic on glimeperide but has not taken his sugars recently because he hasn't been eating. Related Data Home Medications Medication Instructions Recorded Confirmed glimepiride 2 mg PO DAILY 05/31/19 10/31/19 lisinopril 10 mg PO DAILY 05/31/19 10/31/19 Allergies Allergy/AdvReac Type Severity Reaction Status Date / Time tramadol Allergy Hives Verified 05/02/19 00:51 Review of Systems Constitutional: Constitutional: Denies chills and Denies fever(s) ENT: Denies sore throat Cardiovascular: Cardiovascular: Denies chest pain Respiratory: Respiratory: Denies chest congestion and Denies cough Gastrointestinal: Gastrointestinal: Denies no additional gastrointestinal complaints Genitourinary: Genitourinary: Denies dysuria Musculoskeletal: Musculoskeletal: Denies muscle cramps Integumentary/Breasts: Skin/Breast: Denies rash Neurologic: Reports as per HPI (lightheaded) and Reports headache(s) [facility] Past Medical History Medical History Hypertension Type 2 diabetes mellitus Urolithiasis Surgical History Surgical History History of cholecystectomy Social History Social History Smoking status: Never smoker Second hand tobacco smoke exposure: No Alcohol intake: never Substance use: never Substance use type: does not use Gender identity (if verbalized by the patient): Male Spiritual care concerns: No Agree to blood products: Yes Exam Narrative: Exam Narrative: Laying on his right side, hand on bed railing, does not move during my interview, appears weak. Const: General: No diaphoretic Nutritional Appearance: obese Orientation/consciousness: patient oriented x3 HENMT: Head: normal to inspection Face and sinus: abnormal facial exam Mouth: Yes dry mucous membranes Eyes: EOM: EOMs intact bilaterally Neck: Neck: no lymphadenopathy Chest: Chest palpation & inspection: normal inspection of the chest Resp: Effort & Inspection: not labored and no retractions Auscultation: clear to auscultation bilaterally, no rales and no wheezes Cardio: Rate: regular rate Rhythm: regular rhythm Heart sounds: no murmurs GI: GI Palp: Yes Soft to palpation, Yes Tenderness to palpation present (GI) (Tender RUQ to deep palpation. Obesity interfers with identifying contents. ), No Guarding due to palpation present (GI), No Rigid due to palpation and No Rebound tenderness present : General: Yes no CVA tenderness Skin: General skin exam: normal color Wounds: no wounds Neuro: General: patient oriented x3 Extrem: General: normal to inspection and no pedal edema Psych: Appearance: grossly normal Affect: normal affect Thought content: Yes Normal thought content present Course Course Emergency Course: IVF given. Admit to observation Vital Signs Vital signs: Vital Signs Temperature 36.6 C 10/31/19 18:29 Pulse Rate 115 H 10/31/19 18:29 Respiratory Rate 20 10/31/19 18:29 Blood Pressure 157/89 H 10/31/19 18:29 Pulse Oximetry 98 10/31/19 18:29 Temperature 36.6 C 10/31/19 23:45 Pulse Rate 112 H 10/31/19 23:45 Respiratory Rate 20 10/31/19 23:45 Blood Pressure 132/82 10/31/19 23:45 Pulse Oximetry 99
[2019-10-31] MEDS: LACTATED RINGERS 1,000 ML 999 ML IV CONT ×2 (20:03→21:17)
[2019-10-31 20:26] LABS: Basophils Absolute Auto 0.05 K/mm3 (0.00-0.10); Basophils Percent Auto 0.3 % (0.0-1.0); Eosinophils Absolute Auto 0.02 K/mm3 (0.02-0.50); Eosinophils Percent Auto 0.1 % (1.0-6.0); Hematocrit 53.2 % (40.0-54.0); Hemoglobin 18.2 g/dL (14.0-18.0); Immature Granulocyte Absolute 0.15 K/mm3 (0.00-0.00); Immature Granulocyte Percent A 0.9 % (0.0-0.0); Lymphocytes Percent Auto 8.2 % (18.0-42.0); Mean Corpuscular HGB Conc 34.2 g/dL (32.0-36.0); Mean Corpuscular Hemoglobin 28.1 pg (27.0-31.0); Mean Corpuscular Volume 82.1 fL (78.0-102.0); Mean Platelet Volume 10.3 fl (8.7-11.0); Monocytes Absolute Auto 1.58 K/mm3 (0.10-0.90); Monocytes Percent Auto 9.3 % (2.0-11.0); Neutrophils Absolute Auto 13.9 K/mm3 (1.7-7.2); Neutrophils Percent Auto 81.2 % (50.0-70.0); Nucleated Red Blood Cells Absolute Auto 0.02 K/mm3 (0.00-0.00); Nucleated Red Blood Cells Perc 0.1 % (0-0.0); Platelet Count Result 356 K/mm3 (150-420); Red Blood Count 6.48 M/mm3 (4.70-6.10); Red Cell Distribution Width 12.6 % (11.6-14.4); White Blood Count 17.1 K/mm3 (4.8-10.8)
[2019-10-31 20:28] LABS: Appearance Urine Clear (Clear); Bilirubin Urine 1+ (Negative); Color Urine Yellow (Yellow); Glucose Urine UA 3+ (Negative); Ketones Urine 3+ (Negative); Leukocyte Esterase Ur Negative (Negative); Nitrate Urine Negative (Negative); Protein Urine Negative (Negative); Specific Grav Ur 1.025 (1.010-1.020); Urobilinogen Urine 0.2 mg/dL (0.2-1.0)
[2019-10-31 20:37] LABS: Add Urine Microscopic? YES; Bacteria Urine Trace /hpf; Blood Urine Trace (Negative); RBC Urine 0-2 /hpf (0-2); Squamous Epithelial Cell Urine Rare /hpf (Few); WBC Urine 0-3 /hpf (0-3)
[2019-10-31 20:40] VITALS: BP 136/70; PULSE 110; RESP 18; O2SAT 99
[2019-10-31 20:41] LABS: Alanine Aminotransferase 26 U/L (16-63); Albumin Level 3.5 g/dL (3.4-5.0); Alkaline Phosphatase 105 U/L (46-116); Anion Gap 21 mmol/L (8-16); Aspartate Amino Transferase 13 U/L (15-37); Bilirubin,Total 0.9 mg/dL (0.00-1.00); Blood Urea Nitrogen 27 mg/dL (7-18); Calcium 8.8 mg/dL (8.5-10.1); Carbon Dioxide 13 mmol/L (21-32); Chloride 88 mmol/L (98-108); Estimated CRCL calculation 80 ml/min; Estimated Glomerular Filt Rate 53; Osmolality Calculated 277 mOsm/kg (285-295); Potassium 4.8 mmol/L (3.5-5.1); Sodium 122 mmol/L (136-145); Total Protein 7.6 g/dL (6.4-8.2)
[2019-10-31 20:44] LABS: D Dimer 0.79 mg/L (0.19-0.50); Glucose 414 mg/dL (70-99)
[2019-10-31 20:46] LABS: Lactic Acid 2.6 mmol/L (0.4-2.0)
--- NOTE | 2019-10-31 21:00 | PC.NURSE ---
No change in pt status. Pt laying on stretcher lights dimmed. pt eating ice chips.
--- NOTE | 2019-10-31 21:04 | ECG_ITS ---
Measurements Intervals [place] Rate: 113 P: 62 [place]: 122 QRS: 56 QRSD: 85 T: 1 QT: 356 QTc: 490 Interpretive Statements SINUS TACHYCARDIA POSSIBLE LEFT ATRIAL ENLARGEMENT BORDERLINE ST-T WAVE ABNORMALITY- INFERIOR LEADS BASELINE WANDER- I, II, AVR ABNORMAL ECG Electronically Signed On 11-01-2019 7:20:12 CDT by Eliu Dill D.O.
[2019-10-31 21:22] LABS: Base Excess ABG -15.4 mmol/L (0-2); HCO3 ABG 7.9 mmol/L (23-29); Oxygen Content ABG 24.4 %vol (16.0-22.0); Oxygen Saturation ABG 98.2 % (95-97); Oxyhemoglobin 97.6 % (94-100); PO2 ABG 123.9 mmHg (80-90); Total Hemoglobin 17.7 g/dL; pH ABG 7.29 (7.35-7.45)
[2019-10-31 21:25] LABS: Device ROOM AIR; Modified Allen's Test Pass; Site Drawn LEFT RADIAL
[2019-10-31 21:26] LABS: PCO2 ABG 16.8 mmHg (35-45)
[2019-10-31 21:26] LABS: Troponin I < 0.02 ng/mL (0.00-0.056)
[2019-10-31 21:33] LABS: Acetone Small (Negative)
[2019-10-31 21:50] VITALS: BP 145/71; PULSE 110; RESP 18; O2SAT 98
--- NOTE | 2019-10-31 22:00 | PC.NURSE ---
Pt to restroom via wheelchair.
--- NOTE | 2019-10-31 22:39 | PC.NURSE ---
mikep in speaking with pt.
[2019-10-31 22:40] VITALS: BP 145/72; PULSE 103; RESP 18; O2SAT 100
--- NOTE | 2019-10-31 23:35 | ADMGEN ---
This patient, Carrington Avendaño, was admitted to 2nd Floor Room 205-2. Patient oriented to hospital policies and general routines including ID bracelet, bed and alarms, visiting hours, pain management, procedures, bathroom and other care routines, personal items, smoking policy, room service/diet, and visiting hours. Valuables list has been completed. Patient encouraged to report perceived risks to care and to ask questions if they do not understand what they are told or what they should do.
[2019-10-31 23:39] VITALS: BMI 35.4
[2019-10-31 23:45] VITALS: BP 132/82; PULSE 112; RESP 20; TEMP 36.6; O2SAT 99
[2019-10-31] MEDS: LACTATED RINGERS 1,000 ML 250 ML IV CONT (23:55)
[2019-11-01 00:44] LABS: Anion Gap 22 mmol/L (8-16); Blood Urea Nitrogen 25 mg/dL (7-18); Calcium 8.2 mg/dL (8.5-10.1); Carbon Dioxide 11 mmol/L (21-32); Chloride 90 mmol/L (98-108); Estimated CRCL calculation 84 ml/min; Estimated Glomerular Filt Rate 57; Glucose 355 mg/dL (70-99); Lipase 78 U/L (73-393); Osmolality Calculated 274 mOsm/kg (285-295); Potassium 4.9 mmol/L (3.5-5.1); Sodium 123 mmol/L (136-145)
--- NOTE | 2019-11-01 00:51 | PC.NURSE ---
pt resting in bed, iv fluids infusing per order, denies any needs at this time
--- NOTE | 2019-11-01 02:21 | PC.NURSE ---
pt resting in bed, urinal emptied of clear yellow urine, ice water given, iv fluids infusing per order, no other needs at this time
[2019-11-01] MEDS: LACTATED RINGERS 1,000 ML 250 ML IV CONT (04:00)
[2019-11-01 04:30] VITALS: BP 124/65; PULSE 108; RESP 20; TEMP 36.8; O2SAT 100
[2019-11-01 05:21] LABS: Base Excess ABG -16.5 mmol/L (0-2); HCO3 ABG 6.9 mmol/L (23-29); Oxygen Content ABG 24.1 %vol (16.0-22.0); Oxygen Saturation ABG 98.6 % (95-97); Oxyhemoglobin 97.8 % (94-100); PCO2 ABG 14.9 mmHg (35-45); PO2 ABG 143.9 mmHg (80-90); Total Hemoglobin 17.4 g/dL; pH ABG 7.28 (7.35-7.45)
[2019-11-01 05:23] LABS: Basophils Absolute Auto 0.03 K/mm3 (0.00-0.10); Basophils Percent Auto 0.2 % (0.0-1.0); Eosinophils Absolute Auto 0.02 K/mm3 (0.02-0.50); Eosinophils Percent Auto 0.1 % (1.0-6.0); Hematocrit 47.7 % (40.0-54.0); Hemoglobin 16.8 g/dL (14.0-18.0); Immature Granulocyte Absolute 0.16 K/mm3 (0.00-0.00); Immature Granulocyte Percent A 0.9 % (0.0-0.0); Lymphocytes Absolute Auto 1.98 K/mm3 (1.10-4.50); Lymphocytes Percent Auto 10.9 % (18.0-42.0); Mean Corpuscular HGB Conc 35.2 g/dL (32.0-36.0); Mean Corpuscular Hemoglobin 28.7 pg (27.0-31.0); Mean Corpuscular Volume 81.4 fL (78.0-102.0); Mean Platelet Volume 10.4 fl (8.7-11.0); Monocytes Absolute Auto 2.04 K/mm3 (0.10-0.90); Monocytes Percent Auto 11.2 % (2.0-11.0); Neutrophils Percent Auto 76.7 % (50.0-70.0); Platelet Count Result 319 K/mm3 (150-420); Red Blood Count 5.86 M/mm3 (4.70-6.10); Red Cell Distribution Width 12.6 % (11.6-14.4); White Blood Count 18.2 K/mm3 (4.8-10.8)
[2019-11-01 06:05] LABS: Device ROOM AIR; Modified Allen's Test Pass; Site Drawn RIGHT BRACHIAL
[2019-11-01 06:20] LABS: Anion Gap 24 mmol/L (8-16); Blood Urea Nitrogen 22 mg/dL (7-18); Calcium 7.9 mg/dL (8.5-10.1); Carbon Dioxide 8 mmol/L (21-32); Chloride 92 mmol/L (98-108); Estimated CRCL calculation 94 ml/min; Estimated Glomerular Filt Rate > 60; Glucose 304 mg/dL (70-99); Osmolality Calculated 272 mOsm/kg (285-295); Potassium 5.2 mmol/L (3.5-5.1); Sodium 124 mmol/L (136-145)
--- NOTE | 2019-11-01 06:29 | PC.NURSE ---
Dr. Verdugo notified of pt's pCO2 of 14.9. No new orders at this time.
--- NOTE | 2019-11-01 06:49 | PC.NURSE ---
Dr. Verdugo notified of pt's elevated blood sugar. New orders recieved and noted.
--- NOTE | 2019-11-01 07:30 | PC.NURSE ---
Restingi n bed, fluids continue at this time, slight leaking at entry side, no obvious infiltration noted, will keep an eye on, flushes easily, no edema, tired in appearance
[2019-11-01 08:00] VITALS: BP 138/90; PULSE 110; RESP 18; TEMP 36.4; O2SAT 95
--- NOTE | 2019-11-01 08:27 | PM.IMHP ---
H&P: HPI History of Present Illness Date/Time: 11/01/19 08:27 Chief complaint: dehydration vomitting Narrative: Carrington Avendaño is a 38 year old male admitted with a 3-4/10 headache, weakness, fatigue , nausea and vomiting. in the ED he was feeling very thirsty and short of breath. He has had intermittent right upper quadrant abdominal discomfort, no pain in the ED. He has also had heartburn with frequent burping and pain with swallowing. He is a type 2 diabetic on glimeperide but has not taken his sugars because he hasn't been eating. He stated that he was vomiting for 4 days, but that it stopped about 2 days ago. In the ED he stated that he currently had no diarrhea. In the ED he had abdominal tenderness to the right upper quadrant with deep palpation. In the ED his labs showed metabolic acidosis, likely due to his prolonged vomiting , dehydration, uncontrolled diabetes with hyperglycemia, and poor oral intake. his labs showed trace acetones, 3+ urine ketones. His CTA of the chest showed no acute concerns and no PE noted. Labs showed him to be hyperglycemic with blood sugars in the 3 and 400s. When compared to past renal lab work, his creatinine and BUN were elevated. He was also experiencing hyponatremia, likely due to his vomiting and inability to keep fluids down. In the ED his headache resolved after IV fluids. His WBC was 17.1 admission , may be related to dehydration, with no fevers noted, and no known COVID exposure. UA did not show any reasonably VSE UTI at this time. His heart rate was tachy in the 100-1 10s. His EKG showed Sinus TACHYCARDIA, BORDERLINE ST-T WAVE ABNORMALITY- INFERIOR LEADS, ABNORMAL ECG. at admission. He has a history of type 2 diabetes , morbid obesity, May 2019 obstructing kidney stone, and hypertension.His PCP is eMhnaz Gonzáles APN at [facility] in [place]. He last saw her In May [id number]. We should call [phone] to schedule him a follow up appointment. He has gone without meds for the last 1-2 months, despite having HTN and DM. He has not been checking his blood sugars at home. His pharmacy [facility] in [place] confirmed that he has not olive picker any medications since April 2019 and at that time he received a 90 day supply. He denies getting prescriptions at any other pharmacy since then. Today Carrington is very weak and has a flat affect. Overnight he has had no nausea, no vomiting, no diarrhea. He stated that he has been so weak and sick for the last 7 days that he has not taking any medications during those last 7 days and has not been eating or drinking properly for the last 7 days. he is currently denying any chest pain or chest pressure, dyspnea or shortness of breath, denies any abdominal pain or abdominal pressure or cramping. He denies flank pain or back pain at this time. He has significant and profound weakness. No fevers noted overnight, no coughing or wheezing. In the ED his labs showed metabolic acidosis, likely due to his prolonged vomiting , dehydration, uncontrolled diabetes with hyperglycemia, and poor oral intake. his labs showed trace acetones, 3+ urine ketones. His CTA of the chest showed no acute concerns and no PE noted. Labs showed him to be hyperglycemic with blood sugars in the 3 and 400s. When compared to past renal lab work, his creatinine and BUN were elevated. He was also experiencing hyponatremia, likely due to his vomiting and inability to keep fluids down. In the ED his headache resolved after IV fluids. His WBC was 17.1 admission , may be related to dehydration, with no fevers noted, and no known COVID exposure. UA did not show any reasonably VSE UTI at this time. His heart rate was tachy in the 100-1 10s. His EKG showed Sinus TACHYCARDIA, BORDERLINE ST-T WAVE ABNORMALITY- INFERIOR LEADS, ABNORMAL ECG. at admission. If Leukocytosis, renal dysfxn., lactic acidosis, and Tachycardia persists, may need to order Head CT or ECHO. Carrington denies
[2019-11-01 08:34] LABS: Glucose Point of Care 327 (65-105)
--- NOTE | 2019-11-01 08:35 | PC.NURSE ---
glucose at the bedside repeated note to be 327, doctor aware, will follow sliding scale as ordered
[2019-11-01] MEDS: SODIUM CHLORIDE 0.9% IV 1,000 ML 150 ML IV CONT ×2 (08:36→10:10)
--- NOTE | 2019-11-01 08:36 | PC.NURSE ---
Fluids increased to bolus rate
[2019-11-01 08:38] LABS: Magnesium 2.4 mg/dL (1.8-2.4); Phosphorus 2.9 mg/dL (2.6-4.7)
[2019-11-01] MEDS: PANTOPRAZOLE SODIUM IV 40 MG VIAL IV PUSH ×2 (09:21→21:48)
[2019-11-01] MEDS: ENOXAPARIN 40 MG/0.4 ML SYRINGE SUB-Q (09:23)
[2019-11-01 10:18] LABS: Lactic Acid 1.3 mmol/L (0.4-2.0)
--- NOTE | 2019-11-01 10:30 | PC.NURSE ---
fluids infusing, site leaking slightly at insertion site, no edema noted
--- NOTE | 2019-11-01 11:30 | PC.NURSE ---
fluids infusing, awaiting imaging to be done
[2019-11-01 11:45] LABS: Glucose Point of Care 331 (65-105)
[2019-11-01 12:00] VITALS: BP 143/78; PULSE 108; RESP 18; TEMP 36.4; O2SAT 95
[2019-11-01 12:07] LABS: Basophils Absolute Auto 0.03 K/mm3 (0.00-0.10); Basophils Percent Auto 0.2 % (0.0-1.0); Hematocrit 46.6 % (40.0-54.0); Hemoglobin 15.8 g/dL (14.0-18.0); Immature Granulocyte Absolute 0.13 K/mm3 (0.00-0.00); Immature Granulocyte Percent A 0.8 % (0.0-0.0); Lymphocytes Percent Auto 12.2 % (18.0-42.0); Mean Corpuscular HGB Conc 33.9 g/dL (32.0-36.0); Mean Corpuscular Hemoglobin 28.2 pg (27.0-31.0); Mean Corpuscular Volume 83.1 fL (78.0-102.0); Mean Platelet Volume 10.8 fl (8.7-11.0); Monocytes Absolute Auto 1.84 K/mm3 (0.10-0.90); Monocytes Percent Auto 10.7 % (2.0-11.0); Neutrophils Absolute Auto 13.2 K/mm3 (1.7-7.2); Neutrophils Percent Auto 76.1 % (50.0-70.0); Platelet Count Result 302 K/mm3 (150-420); Red Blood Count 5.61 M/mm3 (4.70-6.10); Red Cell Distribution Width 12.7 % (11.6-14.4); White Blood Count 17.3 K/mm3 (4.8-10.8)
[2019-11-01 12:25] LABS: D Dimer 1.44 mg/L (0.19-0.50)
[2019-11-01 12:29] LABS: Alanine Aminotransferase 20 U/L (16-63); Albumin Level 2.7 g/dL (3.4-5.0); Alkaline Phosphatase 77 U/L (46-116); Anion Gap 22 mmol/L (8-16); Aspartate Amino Transferase 13 U/L (15-37); Bilirubin,Total 0.8 mg/dL (0.00-1.00); Blood Urea Nitrogen 21 mg/dL (7-18); Calcium 7.2 mg/dL (8.5-10.1); Carbon Dioxide 10 mmol/L (21-32); Chloride 94 mmol/L (98-108); Estimated CRCL calculation 97 ml/min; Estimated Glomerular Filt Rate > 60; Glucose 334 mg/dL (70-99); Osmolality Calculated 278 mOsm/kg (285-295); Potassium 4.6 mmol/L (3.5-5.1); Sodium 126 mmol/L (136-145); Total Protein 6.1 g/dL (6.4-8.2)
--- NOTE | 2019-11-01 12:30 | PC.NURSE ---
currently in imaging department
[2019-11-01 12:33] LABS: CRP 0.5 mg/dL (0.0-0.9)
[2019-11-01 13:08] LABS: Erythrocyte Sedimentation Rate 2 mm/hr (0-15)
--- NOTE | 2019-11-01 13:30 | PC.NURSE ---
returned from imaging
--- NOTE | 2019-11-01 13:42 | PC.NURSE ---
Requesting IV site be moved, fluids off at this time, slow to respond but does respond appropriately
--- NOTE | 2019-11-01 14:01 | PC.NURSE ---
Lunch tray provided
[2019-11-01 14:33] LABS: Amphetamine Screen Urine Negative (Negative); Barbiturate Screen Urine Negative (Negative); Benzodiazepines Screen Urine Negative (Negative); Cannabinoid Screen Urine Negative (Negative); Cocaine Screen Urine Negative (Negative); Methadone Screen Urine Negative (Negative); Opiate Screen Urine Negative (Negative); Phencyclidine Screen Urine Negative (Negative)
[2019-11-01 14:46] LABS: Ethanol < 3 mg/dL (0-6)
[2019-11-01 15:44] LABS: Acetaminophen 2 ug/mL (10-30); Salicylate 2.8 mg/dL (2.8-20.0)
[2019-11-01 16:00] VITALS: BP 132/82; PULSE 96; RESP 16; TEMP 36.7; O2SAT 98
[2019-11-01 16:51] LABS: Glucose Point of Care 233 (65-105)
--- NOTE | 2019-11-01 17:00 | ECG_ITS ---
Measurements Intervals [place] Rate: 102 P: 58 ID: 140 QRS: 53 QRSD: 86 T: -6 QT: 401 QTc: 523 Interpretive Statements SINUS TACHYCARDIA BORDERLINE ST-T WAVE ABNORMALITY- INFERIOR LEADS BASELINE WANDER- V1-V2 BORDERLINE ECG Electronically Signed On 11-01-2019 20:14:42 CDT by Eliu Dill D.O.
[2019-11-01 20:00] VITALS: BP 120/74; PULSE 106; RESP 18; TEMP 36.4; O2SAT 98
[2019-11-01 20:40] LABS: Glucose Point of Care 306 (65-105)
[2019-11-01 21:39] LABS: Anion Gap 16 mmol/L (8-16); Blood Urea Nitrogen 16 mg/dL (7-18); Calcium 8.4 mg/dL (8.5-10.1); Carbon Dioxide 15 mmol/L (21-32); Chloride 95 mmol/L (98-108); Estimated CRCL calculation 89 ml/min; Estimated Glomerular Filt Rate > 60; Glucose 313 mg/dL (70-99); Osmolality Calculated 275 mOsm/kg (285-295); Potassium 4.3 mmol/L (3.5-5.1); Sodium 126 mmol/L (136-145)
[2019-11-01] MEDS: ENOXAPARIN 120 MG/0.8 ML SYRINGE SUB-Q (21:48)
--- NOTE | 2019-11-01 23:23 | PM.EVENT ---
Event Note Event Note Event Note: I have examined the patient reviewed the chart. I discussed the patient's care with A Perfecto IRENE and agree with her assessment and plan.
[2019-11-02] VITALS (11 sets, daily range): BP systolic 98–149; BP diastolic 49–89; PULSE 70–124; RESP 16–18; TEMP 36.2–37.1; O2SAT 93–99
[2019-11-02] MEDS: SODIUM CHLORIDE 0.9% IV 1,000 ML 150 ML IV CONT ×2 (02:04→09:44)
[2019-11-02 05:35] LABS: Hematocrit 42.5 % (40.0-54.0); Hemoglobin 14.7 g/dL (14.0-18.0); Mean Corpuscular HGB Conc 34.6 g/dL (32.0-36.0); Mean Corpuscular Hemoglobin 28.3 pg (27.0-31.0); Mean Corpuscular Volume 81.9 fL (78.0-102.0); Mean Platelet Volume 9.9 fl (8.7-11.0); Platelet Count Result 232 K/mm3 (150-420); Red Blood Count 5.19 M/mm3 (4.70-6.10); Red Cell Distribution Width 12.9 % (11.6-14.4); White Blood Count 9.8 K/mm3 (4.8-10.8)
[2019-11-02 05:51] LABS: Alanine Aminotransferase 21 U/L (16-63); Albumin Level 2.7 g/dL (3.4-5.0); Alkaline Phosphatase 70 U/L (46-116); Anion Gap 16 mmol/L (8-16); Aspartate Amino Transferase 14 U/L (15-37); Bilirubin,Total 0.8 mg/dL (0.00-1.00); Blood Urea Nitrogen 13 mg/dL (7-18); Calcium 7.9 mg/dL (8.5-10.1); Carbon Dioxide 16 mmol/L (21-32); Chloride 98 mmol/L (98-108); Estimated CRCL calculation 96 ml/min; Estimated Glomerular Filt Rate > 60; Glucose 300 mg/dL (70-99); Osmolality Calculated 281 mOsm/kg (285-295); Potassium 4.1 mmol/L (3.5-5.1); Sodium 130 mmol/L (136-145); Total Protein 5.9 g/dL (6.4-8.2)
--- NOTE | 2019-11-02 07:45 | PM.IMPN ---
Progress Note: A&P Assessment and Plan (1) Esophagitis, acute: Code(s): K20.9 - Esophagitis, unspecified Status: Acute Assessment and Plan: IMPROVING. nausea and vomiting for days at home. No nausea or vomiting her diarrhea today, his appetite is very slowly returning, no heartburn noted today changing IV Protonix to oral Tums and Pepcid are ordered p.r.n. negative occult blood ruling out food poisoning - ordered full panel of stool cultures needs to follow-up with PCP DR. Pulido in [place], [place] OR Mehnaz Gonzáles APN at [facility] in [place]. call [phone] to schedule him a follow up appointment. 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 No Acute S/S at this time. had an obstructing kidney stone in May of this year denies any flank pain today UA showed trace blood and 1+ bili, no RBCs. ordered a CT abdomen pelvis: There is edematous wall thickening the distal esophagus consistent with esophagitis. Diffuse hepatic steatosis. Multiple bilateral nonobstructing renal stones with 9 stones the right kidney the largest measuring 7 mm in maximal diameter and 3 stones in the left kidney the largest measuring 3 mm in maximal diameter. There are a few subcentimeter low-attenuation likely cysts in the bilateral kidneys which are too small to definitively characterize. Bowels including the appendix are normal. IMPRESSION:1. Edematous wall thickening in the distal esophagus consistent with esophagitis which may be related to reflux given the provided history of heartburn. 2. Bilateral nonobstructing nephrolithiasis. his creatinine was 1.5 at admission, received over 2 L of IV fluids, and is now 1.21 Carrington stated that he passed a kidney stone at work, could not catch it, and therefore never did follow-up with a urologist. (3) Hyperglycemia due to type 2 diabetes mellitus: Code(s): E11.65 - Type 2 diabetes mellitus with hyperglycemia Status: Acute Assessment and Plan: history of type 2 diabetes , morbid obesity, kidney stones He has gone without meds for the last 1-2 months, despite having HTN and DM. He has not been checking his blood sugars at home. His pharmacy [facility] in [place] confirmed that he has not bean picker machine operator any medications since April 2019 and at that time he received a 90 day supply. He denies getting prescriptions at any other pharmacy since then. diabetic diet - Patient is refusing diet drinks, states he can't drink diet soda. nausea/vomiting /diarrhea resolved bedside glucose checks a.c. HS restarted patient on 2 mg of glimepiride, started him also on 50 mg of Januvia, and changed sliding scale insulin to low-dose p.r.n. Must keep seeing PCP Dr. Pulido or Mehnaz Gonzáles APN at [facility] in [place]. call [phone] to schedule him a follow up appointment. cannot risk running out of medications again as well as needs to know how to check his blood sugars at home for both high and lows Consulted school childcare attendant to assist with making sure the patient can afford his medications, and get his medications, and called his significant other and girlfriend with the patient's permission to discuss how we can help Carrington to remember to take his medications. (4) Dehydration with hyponatremia: Code(s): E86.0 - Dehydration; E87.1 - Hypo-osmolality and hyponatremia Status: Acute Assessment and Plan: Na 122 at admission, now improved to 130 low sodium may be causing his profound weakness hyponatremia from his days of
[2019-11-02 08:03] LABS: Glucose Point of Care 238 (65-105)
[2019-11-02] MEDS: ENOXAPARIN 120 MG/0.8 ML SYRINGE SUB-Q ×2 (09:44→20:07)
[2019-11-02] MEDS: PANTOPRAZOLE SODIUM IV 40 MG VIAL IV PUSH (09:45)
--- NOTE | 2019-11-02 10:06 | PC.NURSE ---
0850 had ashort run of 150 hr. casting associate aware and erp
[2019-11-02] MEDS: SODIUM CHLORIDE 0.9% IV 1,000 ML 125 ML IV CONT ×2 (10:31→20:35)
--- NOTE | 2019-11-02 10:51 | ECHO_ITS ---
Patient Info Name: Carrington Avendaño Age: 38 years : 1980 Gender: Male Ht: 71 in Wt: 251 lbs BSA: 2.43 m2 HR: 101 bpm BP: 140 / 85 mmHg Heart Rhythm: Sinus Rhythm Technical Quality: Fair Exam Date: 11/02/2019 1:39 PM Exam Location: [facility] Patient Status: Inpatient Admit Date: 11/02/2019 Staff Ordering Physician: Yvette Grove NP Salesperson New Cars: Bety Conrad RDCS Attending Provider: Aleksander Verdugo MD Referring Physician: Perfecto KAN; Exam Type: CA echo dop color flow w con Study Info Indications R94.31 - Abnormal electrocardiogram ECG EKG I10 - Essential (primary) hypertension Complete two-dimensional, color flow and Doppler transthoracic echocardiogram is performed. Strain analysis performed. History/Risk Factors Hypertension: Yes Diabetic Therapy: Insulin Obesity: Yes Diabetes Mellitus: Yes Summary 1. Left ventricular chamber dimension is normal. 2. Left ventricular systolic function is normal, estimated at 60-65%. 3. There is mildly increased left ventricular wall thickness. 4. The left ventricular diastolic function is normal. 5. E/e' 9 is minimally elevated. 6. Global longitudinal strain is abnormal at -11.9%. 7. Left atrial chamber dimension is mildly enlarged. Recommendations * Continue medical therapy for diabetes. Left Ventricle E/e' 9 is minimally elevated. Global longitudinal strain is abnormal at -11.9%. Left ventricular chamber dimension is normal. Left ventricular systolic function is normal, estimated at 60-65%. There is mildly increased left ventricular wall thickness. The left ventricular diastolic function is normal. Right Ventricle Right ventricular chamber dimension is normal. Right ventricular systolic function is normal. Left Atria Left atrial chamber dimension is mildly enlarged. Right Atria Right atrial chamber dimension is normal. Aortic Valve The aortic valve is trileaflet. There is no aortic valve stenosis. There is no aortic valve regurgitation. Pulmonic Valve There is no pulmonic regurgitation. Mitral Valve There is no mitral valve stenosis. There is no mitral valve regurgitation. Tricuspid Valve There is no tricuspid valve regurgitation. Pericardium/Pleural There is no pericardial effusion. Inferior Vena Cava IVC is not well seen. Aorta The aortic root size at the sinus of Valsalva is normal. Left Ventricular Outflow Tract Name Value Normal LVOT 2D LVOT Diameter 2.46 cm LVOT Doppler LVOT Peak Velocity 139.46 cm/s LVOT Peak Gradient 8 mmHg LVOT Mean Gradient 4 mmHg LVOT VTI 20.99 cm LVOT VTI/AV VTI Ratio 0.79 LVOT Stroke Volume 99.39 ml Mitral Valve Name Value Normal MV Doppler
--- NOTE | 2019-11-02 10:51 | PC.NURSE ---
NS 125ml/hr stopped due to positional IV. Instructed patient to drink more fluids. Strict I&O
[2019-11-02 10:53] LABS: Magnesium 2.3 mg/dL (1.8-2.4); Thyroid Stimulating Hormone Reflex 0.57 u/IU/mL (0.36-3.74)
[2019-11-02 11:41] LABS: Glucose Point of Care 246 (65-105)
[2019-11-02] MEDS: METOPROLOL TARTRATE 25 MG TABLET 12.5 MG PO ×2 (11:50→20:06)
[2019-11-02] MEDS: GLIMEPIRIDE 2 MG TABLET PO (11:51)
[2019-11-02] MEDS: lisinopriL 5 MG TABLET PO (11:51)
--- NOTE | 2019-11-02 13:21 | PCOTNOTE ---
Patient is discharged from skilled OT services as he has met his goals and demonstrates the ability to perform self care and functional mobility with independence. MS
[2019-11-02 15:01] LABS: Glucose Point of Care 260 (65-105)
[2019-11-02] MEDS: PANTOPRAZOLE 40 MG TABLET PO (20:06)
[2019-11-02 21:21] LABS: Glucose Point of Care 345 (65-105)
[2019-11-03] VITALS (7 sets, daily range): BP systolic 96–127; BP diastolic 48–82; PULSE 68–114; RESP 18–20; TEMP 36.3–36.8; O2SAT 96–98
[2019-11-03 00:09] LABS: Glucose Point of Care 263 (65-105)
[2019-11-03] MEDS: SODIUM CHLORIDE 0.9% IV 1,000 ML 125 ML IV CONT (03:03)
[2019-11-03 03:41] LABS: Glucose Point of Care 280 (65-105)
[2019-11-03 05:35] LABS: Hematocrit 41.2 % (40.0-54.0); Hemoglobin 13.9 g/dL (14.0-18.0); Mean Corpuscular HGB Conc 33.7 g/dL (32.0-36.0); Mean Corpuscular Hemoglobin 27.9 pg (27.0-31.0); Mean Corpuscular Volume 82.6 fL (78.0-102.0); Mean Platelet Volume 10.4 fl (8.7-11.0); Platelet Count Result 197 K/mm3 (150-420); Red Blood Count 4.99 M/mm3 (4.70-6.10); Red Cell Distribution Width 13.2 % (11.6-14.4); White Blood Count 6.5 K/mm3 (4.8-10.8)
[2019-11-03 05:44] LABS: Anion Gap 7 mmol/L (8-16); Blood Urea Nitrogen 10 mg/dL (7-18); Calcium 8.4 mg/dL (8.5-10.1); Carbon Dioxide 27 mmol/L (21-32); Chloride 102 mmol/L (98-108); Estimated CRCL calculation 119 ml/min; Estimated Glomerular Filt Rate > 60; Glucose 240 mg/dL (70-99); Osmolality Calculated 289 mOsm/kg (285-295); Potassium 3.5 mmol/L (3.5-5.1); Sodium 136 mmol/L (136-145)
[2019-11-03 07:52] LABS: Glucose Point of Care 273 (65-105)
[2019-11-03] MEDS: METOPROLOL TARTRATE 25 MG TABLET 12.5 MG PO (09:34)
[2019-11-03] MEDS: lisinopriL 5 MG TABLET PO (09:35)
[2019-11-03] MEDS: PANTOPRAZOLE 40 MG TABLET PO (09:35)
[2019-11-03] MEDS: GLIMEPIRIDE 2 MG TABLET PO (09:35)
[2019-11-03] MEDS: ENOXAPARIN 120 MG/0.8 ML SYRINGE SUB-Q (09:40)
--- NOTE | 2019-11-03 11:19 | PM.DS ---
DS: Admitting Diagnosis Admitting Diagnosis Admitting Diagnosis: dehydration vomitting <Yvette Grove NP - Last Filed: 11/03/19 14:33> DS: Discharge Diagnosis Discharge Diagnosis (1) Esophagitis, acute: Code(s): K20.9 - Esophagitis, unspecified <Yvette Grove NP - Last Filed: 11/03/19 14:33> Status: Acute <Yvette Grove NP - Last Filed: 11/03/19 14:33> Assessment and Plan: IMPROVING. nausea and vomiting for days at home. No nausea or vomiting or diarrhea here, appetite has returned, no heartburn noted today continue oral daily Protonix at discharge Tums and Pepcid are ordered p.r.n. negative occult blood needs to follow-up with PCP DR. Pulido in [place], [place] OR Mehnaz Gonzáles APN at [facility] in [place]. call [phone] to schedule him a follow up appointment. prior to discharge: he needs to have the ability to pay for and product picker and get his prescription medications as well as the ability to check his blood sugars at home he will need to get stronger to improve his acid reflux as well as his ability to swallow, improve his appetite - may benefit from rehab therapy with PT and OT PT eval in place <Yvette Grove NP - Last Filed: 11/03/19 14:33> (2) Bilateral nephrolithiasis: Code(s): N20.0 - Calculus of kidney <Yvette Grove NP - Last Filed: 11/03/19 14:33> Status: Acute <Yvette Grove NP - Last Filed: 11/03/19 14:33> Assessment and Plan: CHRONIC. No Acute S/S at this time. had an obstructing kidney stone in May of this year denies any flank pain today UA showed trace blood and 1+ bili, no RBCs. ordered a CT abdomen pelvis: There is edematous wall thickening the distal esophagus consistent with esophagitis. Diffuse hepatic steatosis. Multiple bilateral nonobstructing renal stones with 9 stones the right kidney the largest measuring 7 mm in maximal diameter and 3 stones in the left kidney the largest measuring 3 mm in maximal diameter. There are a few subcentimeter low-attenuation likely cysts in the bilateral kidneys which are too small to definitively characterize. Bowels including the appendix are normal. IMPRESSION:1. Edematous wall thickening in the distal esophagus consistent with esophagitis which may be related to reflux given the provided history of heartburn. 2. Bilateral nonobstructing nephrolithiasis. his creatinine was 1.5 at admission, received over 2 L of IV fluids, and is now 1.21 Carrington stated that he passed a kidney stone at work, could not catch it, and therefore never did follow-up with a urologist. <Yvette Grove NP - Last Filed: 11/03/19 14:33> (3) Hyperglycemia due to type 2 diabetes mellitus: Code(s): E11.65 - Type 2 diabetes mellitus with hyperglycemia <Yvette Grove NP - Last Filed: 11/03/19 14:33> Status: Acute <Yvette Grove NP - Last Filed: 11/03/19 14:33> Assessment and Plan: IMPROVING. history of type 2 diabetes , morbid obesity, kidney stones He has gone without meds for the last 1-2 months, despite having HTN and DM. He has not been checking his blood sugars at home. His pharmacy [facility] in [place] confirmed that he has not product picker any medications since April 2019 and at that time he received a 90 day supply. He denies getting prescriptions at any other pharmacy since then. diabetic diet - Patient is refusing diet drinks, states he can't drink diet soda. nausea/vomiting /diarrhea resolved bedside glucose checks a.c. HS restarted patient on 2 mg of glimepiride, started him also on 50 mg of Januvia, and changed sliding scale insulin to low-dose p.r.n. Must keep seeing PCP Dr. Pulido or Mehnaz Gonzáles APN at [facility] in [place]. call [phone] to schedule him a follow up appointment. cannot risk running out of medications again as well as needs to know how to check his blood sugars at home for both high and lows Con
[2019-11-03 11:43] LABS: Glucose Point of Care 215 (65-105)
--- NOTE | 2019-11-04 08:28 | P.PNCROSS_ITS ---
Event Note Event Note Event Note: For this patient encounter, I reviewed the DIRECTOR OF KIDS or PA documentation, treatment plan, and medical decision making; and I had [id number] time with this patient.
--- NOTE | 2019-11-04 08:28 | PM.EVENT ---
Event Note Event Note Event Note: For this patient encounter, I reviewed the TACK PICKER or PA documentation, treatment plan, and medical decision making; and I had [id number] time with this patient.
[2019-11-06 20:13] LABS: Vitamin D 25 Hydroxy 6 ng/mL (30-100)
== END 2019-11-03 16:40 | disposition home or self-care (01) | DRG 420 ==
LOC: CHSED 18:10 → CHS2ND 22:54
PROVIDERS: Emergency Medicine; Nurse Practitioner; Admitting Provider Family Medicine; Emergency Provider Family Medicine; PCP Nurse Practitioner; Visit Provider Family Medicine
DX: E11.65 Type 2 diabetes mellitus with hyperglycemia (principal); E86.0 Dehydration; E87.1 Hypo-osmolality and hyponatremia; K20.9 Esophagitis, unspecified; R00.0 Tachycardia, unspecified; N20.0 Calculus of kidney; D72.829 Elevated white blood cell count, unspecified; R11.10 Vomiting, unspecified; R53.1 Weakness; E66.01 Morbid (severe) obesity due to excess calories; Z87.442 Personal history of urinary calculi
CPT/HCPCS: 36415; 36600; 70450; 71045; 71046; 71275; 74177; 80048; 80053; 80307; 81001; 82010; 82306; 82805; 83036; 83605; 83690; 83735; 83880; 84100; 84443; 84484; 85025; 85027; 85380; 85652; 86140; 87040; 87086; 87088; 93005; 93306; 93970; 96360; 96361; 96372; 96374; 96376; 97161; 97165; 97530; 97535; 99284; 99285; A9270; C9113; G0378; G0379; J1650; J1815; J7030; J7120; Q9965

== ENCOUNTER 2019-11-10 12:44 | Outpatient (CLI) | payer OTHER, SELFPAY ==
[2019-11-10 13:09] LABS: Basophils Absolute Auto 0.06 K/mm3 (0.00-0.10); Basophils Percent Auto 0.6 % (0.0-1.0); Eosinophils Absolute Auto 0.12 K/mm3 (0.02-0.50); Eosinophils Percent Auto 1.2 % (1.0-6.0); Hemoglobin 13.9 g/dL (14.0-18.0); Immature Granulocyte Absolute 0.07 K/mm3 (0.00-0.00); Immature Granulocyte Percent A 0.7 % (0.0-0.0); Lymphocytes Absolute Auto 3.16 K/mm3 (1.10-4.50); Lymphocytes Percent Auto 31.3 % (18.0-42.0); Mean Corpuscular HGB Conc 33.1 g/dL (32.0-36.0); Mean Corpuscular Hemoglobin 28.8 pg (27.0-31.0); Mean Corpuscular Volume 87.1 fL (78.0-102.0); Mean Platelet Volume 10.9 fl (8.7-11.0); Monocytes Absolute Auto 1.31 K/mm3 (0.10-0.90); Neutrophils Absolute Auto 5.4 K/mm3 (1.7-7.2); Neutrophils Percent Auto 53.2 % (50.0-70.0); Platelet Count Result 300 K/mm3 (150-420); Red Blood Count 4.82 M/mm3 (4.70-6.10); Red Cell Distribution Width 13.3 % (11.6-14.4); White Blood Count 10.1 K/mm3 (4.8-10.8)
[2019-11-10 13:17] LABS: Hemoglobin A1C 11.1 % (<5.7)
[2019-11-10 14:47] LABS: Alanine Aminotransferase 51 U/L (16-63); Albumin Level 3.3 g/dL (3.4-5.0); Alkaline Phosphatase 61 U/L (46-116); Anion Gap 7 mmol/L (8-16); Aspartate Amino Transferase 24 U/L (15-37); Bilirubin,Total 0.2 mg/dL (0.00-1.00); Blood Urea Nitrogen 9 mg/dL (7-18); Calcium 9.1 mg/dL (8.5-10.1); Carbon Dioxide 30 mmol/L (21-32); Chloride 100 mmol/L (98-108); Cholesterol 287 mg/dL (0-200); Estimated Glomerular Filt Rate > 60; Glucose 184 mg/dL (70-99); HDL Direct 45 mg/dL (40-60); LDL Cholesterol Calculated 158 mg/dL (<130); Osmolality Calculated 287 mOsm/kg (285-295); Potassium 5.1 mmol/L (3.5-5.1); Sodium 137 mmol/L (136-145); Total Protein 6.6 g/dL (6.4-8.2); Triglycerides 418 mg/dL (0-150)
[2019-11-10 14:48] LABS: LDL Cholesterol Direct 176 mg/dL (0-130)
== END 2019-11-10 12:45 | disposition home or self-care (01) ==
LOC: CHSLAB 12:47
PROVIDERS: Nurse Practitioner; PCP Family Medicine; Visit Provider Family Medicine
DX: R60.0 Localized edema (principal); E11.9 Type 2 diabetes mellitus without complications; E78.2 Mixed hyperlipidemia; N20.0 Calculus of kidney; R53.1 Weakness; R79.89 Other specified abnormal findings of blood chemistry; K20.9 Esophagitis, unspecified; D72.829 Elevated white blood cell count, unspecified; E86.0 Dehydration; E87.1 Hypo-osmolality and hyponatremia
CPT/HCPCS: 36415; 80053; 80061; 83036; 83721; 85025

== ENCOUNTER 2021-03-19 23:50 | Emergency (ER) | payer SELFPAY ==
--- NOTE | 2021-03-20 00:04 | ED.EXTPRO ---
HPI - Extremity Problem General Chief complaint: Extremity Injury, Upper Stated complaint: R arm Pain Time Seen by Provider: 03/20/21 00:01 Related Data Home Medications Medication Instructions Recorded Confirmed sitagliptin [Januvia] 50 mg PO DAILY 03/20/21 03/20/21 Allergies Allergy/AdvReac Type Severity Reaction Status Date / Time lisinopril Allergy Cough Verified 03/20/21 00:04 metoprolol Allergy Swelling Verified 03/20/21 00:04 Review of Systems Review of Systems: All systems reviewed & are unremarkable except as noted in HPI and below PMFSH Past Medical History Medical History (Updated 03/20/21 @ 00:34 by Cassius Jung MD) Degenerative disc disease GERD (gastroesophageal reflux disease) Hypertension Kidney stones Obesity Type 2 diabetes mellitus Surgical History Surgical History (Updated 03/20/21 @ 00:31 by Cassius Jung MD) History of cholecystectomy Social History Social History (Updated 03/20/21 @ 00:32 by Cassius Jung MD) Smoking status: Never smoker Alcohol intake: current Alcohol use details: rare Substance use: current Other substance usage details: edible marijuana Exam Const: General: healthy appearing, no acute distress and alert Nutritional Appearance: well nourished and obese morbidly obese Orientation/consciousness: patient oriented x3 HENMT: Head: normal to inspection Ears: external ears normal Eyes: Conjunctivae: conjunctivae normal Pupils: Equal, round and reactive pupils present EOM: EOMs intact bilaterally Resp: Effort & Inspection: normal respiratory effort Auscultation: clear to auscultation bilaterally Cardio: Rate: regular rate Rhythm: regular rhythm GI: GI Palp: Yes Soft to palpation and No Tenderness to palpation present (GI) Auscultation: normal bowel sounds Back/Spine/Pelvis: Cervical Spine: cervical ROM normal Thoracic/Lumbar Spine: thoraco-lumbar ROM normal Skin: General skin exam: normal color Rashes: no rashes Neuro: General: patient oriented x3, moves all extremities, no focal motor deficits and CN's II-XI intact bilaterally Speech: normal speech Gait exam (Neuro): Normal gait present Extrem: Right upper extremity: shoulder/upper arm tenderness ( over the glenohumeral joint ) and abnormal ROM pain with active ROM in ABduction, in internal rotation and external rotation- and pain with passive ROM with ABduction, with internal rotation and external rotation- Psych: Appearance: grossly normal and well kempt Mental Status: mental status grossly normal Affect: normal affect Attitude: cooperative Thought content: Yes Normal thought content present Course Course Emergency Course: patient strongly encouraged to see his primary care for control of his blood pressure. Procedures Joint Aspiration/Injection Joint Asp./Inject. 1: Joint Aspiration Date: 03/20/21 Time Out Performed: Yes Side of body: right Joint Aspirated: shoulder Ultrasound Guidance: No Skin Prep: Povidone-Iodine1% (X3) Amount of anesthesia used (mL): 4 Needle Size Used: 18G Medication Injected, if any: Lidocaine (4 ml With 40 mg of Kenalog) Amount of medication injected (mL): 5 Patient Tolerated Procedure: well and no complications Complications: none Additional Comments: patient had immediate improvement in range of motion and decrease in pain with range of motion. Discharge Plan Discharge Clinical Impression: Frozen shoulder Qualifiers: Laterality: right Qualified Code(s): M75.01 - Adhesive capsulitis of right shoulder Patient Disposition: Home, Self-Care Condition: Improved Instructions: Adhesive Capsulitis (ED), Hypertension (ED) Additional Instructions: follow-up with her primary care physician any worsening symptoms after injection. Pain may return in the next 2-3 hours but should subside over the next 2-3 days . See her primary care physician in the nex
[2021-03-20] MEDS: LIDOCAINE HCL 1% LOCAL INJ 20 ML VIAL INFILTRATE (00:24)
[2021-03-20] MEDS: TRIAMCINOLONE ACET INJ 40 MG/ML VIAL I-ARTICULR (00:24)
[2021-03-20] MEDS: cloNIDine HCL 0.1 MG TABLET 0.2 MG PO (00:24)
[2021-03-20 00:31] VITALS: BP 202/111; PULSE 98; RESP 20; TEMP 36.5; O2SAT 98
[2021-03-20 00:42] VITALS: BP 156/92
[2021-03-20 00:57] VITALS: BP 158/92; PULSE 88; RESP 18; O2SAT 92
== END 2021-03-20 00:59 | disposition home or self-care (01) ==
PROVIDERS: Emergency Provider Emergency Medicine; PCP Family Medicine
DX: M75.01 Adhesive capsulitis of right shoulder (principal)
CPT/HCPCS: 20552; 99282; 99283; A9270; J3301

== ENCOUNTER 2022-04-13 15:30 | Outpatient (CLI) | payer OTHER, SELFPAY ==
--- NOTE | ~2022-04-13 | XR_ITS ---
EXAM: XR lumbar spine 2-3V DATE: 04/13/2022 15:57 HISTORY: LOW BACK PAIN,NKI,CHRONIC . COMPARISON: 12/28/2011. FINDINGS: 5 nonrib-bearing lumbar-type vertebral bodies. Pedicles intact. 2 mm anterolisthesis of L4 on L5, vertebral body alignment otherwise normal. Vertebral body heights preserved. Mild disc space narrowing at L4-5. Moderate disc space narrowing at L5-S1. Multilevel facet sclerosis and hypertrophy . No fracture or dislocation. Multiple calcifications project over the bilateral renal shadows. Incid ental note of disc space narrowing and moderate bridging osteophytosis at T11-12 and T12-L1. IMPRESSION: Grade 1 retrolisthesis at L4-5. Multilevel mild-moderate degenerative disc disease. Multi level moderate facet arthropathy. Bilateral nephrolithiasis. Reviewed, dictated and finalized at location K. ENT EDUCATION SPECIALIST IMPRESSION: Grade 1 retrolisthesis at L4-5. Multilevel mild-moderate degenerati ve disc disease. Multilevel moderate facet arthropathy. Bilateral nephrolithias is.
[2022-04-13 15:52] LABS: Basophils Absolute Auto 0.04 K/mm3 (0.00-0.10); Basophils Percent Auto 0.6 % (0.0-1.0); Eosinophils Absolute Auto 0.06 K/mm3 (0.02-0.50); Eosinophils Percent Auto 0.9 % (1.0-6.0); Hematocrit 43.1 % (40.0-54.0); Hemoglobin 14.3 g/dL (14.0-18.0); Immature Granulocyte Absolute 0.02 K/mm3 (0.00-0.00); Immature Granulocyte Percent A 0.3 % (0.0-0.0); Lymphocytes Absolute Auto 1.97 K/mm3 (1.10-4.50); Lymphocytes Percent Auto 29.9 % (18.0-42.0); Mean Corpuscular HGB Conc 33.2 g/dL (32.0-36.0); Mean Corpuscular Hemoglobin 27.9 pg (27.0-31.0); Mean Corpuscular Volume 84.2 fL (78.0-102.0); Mean Platelet Volume 11.2 fl (8.7-11.0); Monocytes Absolute Auto 0.51 K/mm3 (0.10-0.90); Monocytes Percent Auto 7.7 % (2.0-11.0); Neutrophils Percent Auto 60.6 % (50.0-70.0); Platelet Count Result 211 K/mm3 (150-420); Red Blood Count 5.12 M/mm3 (4.70-6.10); White Blood Count 6.6 K/mm3 (4.8-10.8)
[2022-04-13 16:22] LABS: Add Urine Microscopic? YES; Appearance Urine Clear (Clear); Bilirubin Urine Negative (Negative); Blood Urine Negative (Negative); Color Urine Light Yellow (Yellow); Glucose Urine UA 3+ (Negative); Ketones Urine Trace (Negative); Leukocyte Esterase Ur Negative (Negative); Nitrate Urine Negative (Negative); Protein Urine Negative (Negative); Specific Grav Ur >= 1.030 (1.010-1.020); Urobilinogen Urine 0.2 mg/dL (0.2-1.0); pH Urine 5.5 (5.0-8.0)
[2022-04-13 16:25] LABS: Hemoglobin A1C 11.5 % (<5.7)
[2022-04-13 16:29] LABS: RBC Urine None seen /hpf (0-2); WBC Urine None seen /hpf (0-3)
[2022-04-13 16:30] LABS: Bacteria Urine Trace /hpf; Squamous Epithelial Cell Urine Rare /hpf (Few)
[2022-04-13 16:38] LABS: MALB Creatinine Ratio 16.3 mg/g (0-30); Microalbumin Urine Random 22.7 mg/L
[2022-04-13 16:46] LABS: Alanine Aminotransferase 44 U/L (16-63); Albumin Level 3.7 g/dL (3.4-5.0); Alkaline Phosphatase 80 U/L (46-116); Anion Gap 8 mmol/L (8-16); Aspartate Amino Transferase 19 U/L (15-37); Bilirubin,Total 0.4 mg/dL (0.00-1.00); Blood Urea Nitrogen 9 mg/dL (7-18); Carbon Dioxide 29 mmol/L (21-32); Chloride 102 mmol/L (98-108); Estimated Glomerular Filt Rate > 60; Glucose 244 mg/dL (70-99); Osmolality Calculated 294 mOsm/kg (285-295); Potassium 4.5 mmol/L (3.5-5.1); Sodium 139 mmol/L (136-145); Total Protein 6.7 g/dL (6.4-8.2)
== END 2022-04-13 15:31 | disposition home or self-care (01) ==
LOC: CHSLAB 15:33
PROVIDERS: PCP Family Medicine; Visit Provider Family Medicine
DX: M54.50 Low back pain, unspecified (principal); E11.9 Type 2 diabetes mellitus without complications; R10.9 Unspecified abdominal pain; M43.16 Spondylolisthesis, lumbar region; M51.36 Other intervertebral disc degeneration, lumbar region; M12.88 Other specific arthropathies, not elsewhere classified, other specified site; N20.0 Calculus of kidney
CPT/HCPCS: 36415; 72100; 80053; 81001; 82043; 83036; 84443; 85025

== ENCOUNTER 2022-05-25 20:16 | Emergency (ER) | payer OTHER, SELFPAY ==
[2022-05-25 20:21] VITALS: BP 174/100; PULSE 112; RESP 14; TEMP 37.4; O2SAT 96
[2022-05-25 20:25] VITALS: O2SAT 96
--- NOTE | 2022-05-25 20:43 | ED.GENADULT ---
HPI - General Adult General Chief complaint: Upper Respiratory Infection Stated complaint: Sick Time Seen by Provider: 05/25/22 20:42 Source: patient Mode of arrival: ambulatory Limitations: no limitations History of Present Illness HPI narrative: complains of a cough with little sputum. Started at 1:00 a.m. today sinus drainage congestion. No fever no nausea vomiting or diarrhea or sore throat. No rash or itching Related Data Home Medications Medication Instructions Recorded Confirmed sitagliptin phosphate 50 mg tablet 50 mg PO DAILY 03/20/21 05/25/22 (Januvia) atorvastatin 10 mg tablet 10 mg PO DAILY 05/25/22 05/25/22 losartan 25 mg tablet 25 mg PO DAILY 05/25/22 05/25/22 pioglitazone 30 mg tablet 30 mg PO DAILY 05/25/22 05/25/22 Allergies Allergy/AdvReac Type Severity Reaction Status Date / Time lisinopril Allergy Cough Verified 03/20/21 08:43 metoprolol Allergy Swelling Verified 03/20/21 08:43 tramadol Allergy Hives Verified 03/20/21 08:43 PMFSH Past Medical History Medical History Degenerative disc disease GERD (gastroesophageal reflux disease) Hypertension Hypertension Kidney stones Obesity Type 2 diabetes mellitus Type 2 diabetes mellitus Urolithiasis Surgical History Surgical History History of cholecystectomy History of cholecystectomy Social History Social History Smoking status: Never smoker Second hand tobacco smoke exposure: No Alcohol intake: never Alcohol use details: rare Substance use: never Substance use type: does not use Other substance usage details: edible marijuana Living arrangements: with family Gender identity (if verbalized by the patient): Male Spiritual care concerns: No Agree to blood products: Yes Exam Const: General: healthy appearing Nutritional Appearance: well nourished Orientation/consciousness: patient oriented x3 Limitations: no limitations HENMT: Head: normal to inspection Ears: external ears normal and TM's normal bilaterally Face/Nose/Sinus: Normal external nose present Face and sinus: normal facial exam Mouth: Yes Normal oral and palatal mucosa present, Yes lip normal and Yes moist mucous membranes Throat: posterior oropharynx normal Eyes: Conjunctivae: conjunctivae normal Pupils: Equal, round and reactive pupils present EOM: EOMs intact bilaterally Neck: Neck: normal visual inspection, no lymphadenopathy and no meningeal signs Chest: Chest palpation & inspection: normal inspection of the chest Resp: Effort & Inspection: normal respiratory effort Auscultation: clear to auscultation bilaterally Cardio: Rate: regular rate and tachycardic Rhythm: regular rhythm Heart sounds: no murmurs GI: Auscultation: normal bowel sounds Back/Spine/Pelvis: Back: no CVA tenderness Skin: General skin exam: normal color Rashes: no rashes Wounds: no wounds Neuro: General: patient oriented x3 Cranial nerves: Yes Nystagmus not present Speech: normal speech Gait exam (Neuro): Normal gait present Extrem: General: normal to inspection Psych: Mental Status: mental status grossly normal Affect: normal affect Attitude: cooperative Course Vital Signs Vital signs: Vital Signs Temperature 37.4 C 05/25/22 20:21 Pulse Rate 112 H 05/25/22 20:21 Respiratory Rate 14 05/25/22 20:21 Blood Pressure 174/100 H 05/25/22 20:21 Pulse Oximetry 96 05/25/22 20:21 Oxygen Delivery Room Air 05/25/22 20:21 Temperature 37.4 C 05/25/22 20:21 Pulse Rate 112 H 05/25/22 20:21 Respiratory Rate 14 05/25/22 20:21 Blood Pressure 174/100 H 05/25/22 20:21 Pulse Oximetry 96 05/25/22 20:25 Oxygen Delivery Room Air 05/25/22 20:25 Medical Decision Making MDM Narrative Medical decision making narrative: symptoms just started today at 1:00 a.m
--- NOTE | 2022-05-25 20:57 | PC.NURSE ---
Strep and covid tests collected and taken to lab 2044
[2022-05-25 21:25] LABS: Influenza A QL RT-PCR Negative (Negative); Influenza B QL RT-PCR Negative (Negative); SARS-CoV-2 RNA PCR Negative (Negative)
[2022-05-25 21:26] LABS: Strep Group A RT-PCR NOT DETECTED (Negative)
[2022-05-25 21:27] LABS: RSV RNA, RT-PCR Negative (Negative)
[2022-05-25 21:40] VITALS: BP 144/95; PULSE 94; RESP 20; TEMP 36.6; O2SAT 98
== END 2022-05-25 22:03 | disposition home or self-care (01) ==
PROVIDERS: Emergency Provider Emergency Medicine; PCP Family Medicine
DX: J06.9 Acute upper respiratory infection, unspecified (principal); I10 Essential (primary) hypertension; E11.9 Type 2 diabetes mellitus without complications; Z20.822 Contact with and (suspected) exposure to COVID-19
CPT/HCPCS: 87637; 87651; 99283

== ENCOUNTER 2022-05-30 20:30 | Emergency (ER) | payer OTHER, SELFPAY ==
[2022-05-30 20:34] VITALS: BP 199/97; PULSE 104; RESP 20; TEMP 37; O2SAT 98
--- NOTE | 2022-05-30 20:53 | ED.URI ---
HPI - URI/Sore Throat General Chief Complaint: Upper Respiratory Infection Stated Complaint: Sinus Pressure Time Seen by Provider: 05/30/22 20:47 Source: patient Mode of arrival: ambulatory Limitations: no limitations History of Present Illness HPI Narrative: Patient here today with sinus congestion and pressure in the frontal and maxillary sinuses with bilateral ear pressure with low-grade fever with no shortness of breath has a mild nonproductive cough with no chest pain no nausea vomiting. Patient was seen here on Wednesday and treated for an allergic rhinitis. MD elicited complaint: nasal congestion and sinus pain Related Data Home Medications Medication Instructions Recorded Confirmed sitagliptin phosphate 50 mg tablet 50 mg PO DAILY 03/20/21 05/30/22 (Januvia) atorvastatin 10 mg tablet 10 mg PO DAILY 05/25/22 05/30/22 losartan 25 mg tablet 25 mg PO DAILY 05/25/22 05/30/22 pioglitazone 30 mg tablet 30 mg PO DAILY 05/25/22 05/30/22 Allergies Allergy/AdvReac Type Severity Reaction Status Date / Time lisinopril Allergy Cough Verified 05/30/22 20:43 metoprolol Allergy Swelling Verified 05/30/22 20:43 tramadol Allergy Hives Verified 05/30/22 20:43 Review of Systems Review of Systems: All systems reviewed & are unremarkable except as noted in HPI and below PMFSH Past Medical History Medical History Degenerative disc disease GERD (gastroesophageal reflux disease) Hypertension Hypertension Kidney stones Obesity Type 2 diabetes mellitus Type 2 diabetes mellitus Urolithiasis Surgical History Surgical History History of cholecystectomy History of cholecystectomy Social History Social History Smoking status: Never smoker Second hand tobacco smoke exposure: No Alcohol intake: never Alcohol use details: rare Substance use: never Substance use type: does not use Other substance usage details: edible marijuana Living arrangements: with family Gender identity (if verbalized by the patient): Male Spiritual care concerns: No Agree to blood products: Yes Exam Const: General: healthy appearing Nutritional Appearance: well nourished Orientation/consciousness: patient oriented x3 Limitations: no limitations HENMT: Head: normal to inspection Ears: external ears normal Face/Nose/Sinus: Normal external nose present Face and sinus: sinus tenderness Eyes: Conjunctivae: conjunctivae normal Pupils: Equal, round and reactive pupils present EOM: EOMs intact bilaterally Neck: Neck: normal visual inspection, no lymphadenopathy and no meningeal signs Chest: Chest palpation & inspection: normal inspection of the chest Resp: Effort & Inspection: normal respiratory effort Auscultation: clear to auscultation bilaterally Cardio: Rate: regular rate Rhythm: regular rhythm GI: GI Palp: Yes Soft to palpation Auscultation: normal bowel sounds : General: Yes bladder normal to palpation Skin: General skin exam: normal color Rashes: no rashes Wounds: no wounds Neuro: General: patient oriented x3 and moves all extremities Extrem: General: normal to inspection Psych: Mental Status: mental status grossly normal Affect: normal affect Course Course Emergency Course: Patient given a dose of 1g IM ceftriaxone in 80mg IM Depo-Medrol. Critical Care Time Critical Care Time Critical Care Time: No Discharge Plan Discharge Clinical Impression: Sinusitis Qualifiers: Sinusitis location: frontal Chronicity: acute Recurrence: non-recurrent Qualified Code(s): J01.10 - Acute frontal sinusitis, unspecified Patient Disposition: Home, Self-Care Condition: Stable Instructions: Antibiotic Form Additional Instructions: Take medicine as prescribed and follow-up with primary care physician within a week for further eval
[2022-05-30] MEDS: methylPREDNISolone ACETATE 40 MG/ML VIAL 80 MG IM (21:08)
[2022-05-30] MEDS: cefTRIAXone 1 GM, LIDOCAINE HCL 1% LOCAL INJ 2.1 ML IM (21:09)
[2022-05-30 21:18] VITALS: BP 170/84; PULSE 100; RESP 18; O2SAT 98
== END 2022-05-30 21:25 | disposition home or self-care (01) ==
PROVIDERS: Emergency Provider Emergency Medicine; PCP Family Medicine
DX: J01.10 Acute frontal sinusitis, unspecified (principal); I10 Essential (primary) hypertension; E11.9 Type 2 diabetes mellitus without complications
CPT/HCPCS: 96372; 99283; J0696; J1030

== ENCOUNTER 2023-01-19 19:18 | Emergency (ER) | payer OTHER, SELFPAY ==
--- NOTE | ~2023-01-19 | CT_ITS ---
EXAMINATION: CT abdomen pelvis wo con DATE: 01/19/2023 21:24 INDICATION: Diarrhea TECHNIQUE: Computed tomography (CT) of the abdomen and pelvis was performed without intravenous contr ast. The dose-length product was 1464.41 mGy-cm. Automated exposure control and iterative reconstruct ion technique were employed. COMPARISON: CT dated 11/01/2019 FINDINGS: Lung bases unremarkable. Heart size normal. There is gynecomastia. Fatty infiltration of th e liver. Status post cholecystectomy. Nonobstructing bilateral renal stones. No ureteral stones or hy dronephrosis. No abnormal pelvic masses or fluid collections. No significant vascular abnormality. No free air or free fluid. There is mild-moderate lower thoracic and lumbar spondylosis. Small fat-cont aining inguinal hernias. IMPRESSION: 1. Nonobstructing bilateral nephrolithiasis. Reviewed, dictated and finalized at location A.
--- NOTE | ~2023-01-19 | XR_ITS ---
EXAMINATION: XR abdomen obstructive series DATE: 01/19/2023 20:28 INDICATION: Diarrhea TECHNIQUE: Supine and upright views of the abdomen. FINDINGS: 06/02/2019 The visualized lung parenchyma is normal.. There is a nonobstructive bowel gas pattern. Gas and stool are seen throughout the colon to the level of the rectum. There is no free air. There are multiple bilateral renal stones. There are cholecystectomy clips. There is a left pelvic phlebolith. No acute osseous abnormality. IMPRESSION: 1. Bilateral nephrolithiasis. Reviewed, dictated and finalized at location A.
[2023-01-19 19:45] VITALS: BP 168/95; PULSE 78; RESP 20; TEMP 36.7; O2SAT 98
--- NOTE | 2023-01-19 20:11 | ED.NAVMDI ---
HPI - Nausea/Vomiting/Diarrhea General Chief complaint: Nausea/Vomiting/Diarrhea Stated complaint: Nausea, Diarrhea, Weak Time Seen by Provider: 01/19/23 19:21 Source: patient Mode of arrival: ambulatory Limitations: no limitations History of Present Illness HPI Narrative: patient is a 42-year-old male with nausea vomiting and diarrhea for the past month on and off. He also has associated diffuse abdominal pain. Today he was having significant diarrhea multiple times and came to the ER for further evaluation. Patient uses a lot of antacids. He also has a poor diet working at [employer]. MD elicited complaint: nausea, vomiting, diarrhea and abdominal pain Onset (ago): month(s) (1) Description of vomiting: food contents Description of diarrhea: watery Associated nausea: Yes Associated abdominal pain: Yes Location of pain: diffuse Radiation: diffuse Pain consistency: intermittent Severity: similar to previous episodes Pain scale (0-10): 4 Quality: cramping and aching Exacerbating factors: eating Relieving factors: eating Associated symptoms: nausea/vomiting Treatment prior to arrival: immodium and other ( Antacids) Related Data Home Medications Medication Instructions Recorded Confirmed sitagliptin phosphate 50 mg tablet 50 mg PO DAILY 03/20/21 01/19/23 (Januvia) atorvastatin 10 mg tablet 10 mg PO DAILY 05/25/22 01/19/23 losartan 25 mg tablet 25 mg PO DAILY 05/25/22 01/19/23 metformin 500 mg tablet 500 mg PO BID 01/19/23 01/19/23 Allergies Allergy/AdvReac Type Severity Reaction Status Date / Time lisinopril Allergy Cough Verified 01/19/23 19:36 metoprolol Allergy Swelling Verified 01/19/23 19:36 tramadol Allergy Hives Verified 01/19/23 19:36 Review of Systems Review of Systems: All systems reviewed & are unremarkable except as noted in HPI and below Constitutional: Constitutional: Reports no additional constitutional complaints Eyes: Eyes: Reports no additional eye complaints ENT: Reports system reviewed and no additional complaints, except as documented Cardiovascular: Cardiovascular: Reports no additional cardiovascular complaints Respiratory: Respiratory: Reports no additional respiratory complaints Gastrointestinal: Gastrointestinal: Reports no additional gastrointestinal complaints Genitourinary: Genitourinary: Reports no additional male genitourinary complaints Musculoskeletal: Musculoskeletal: Reports no additional musculoskeletal complaints Integumentary/Breasts: Skin/Breast: Reports system reviewed and no additional complaints, except as docu Neurologic: Reports system reviewed and no additional complaints, except as documented Psychiatric: Psychiatric: Reports no additional psychiatric complaints Endocrine: Endocrine: Reports no additional endocrine complaints Hematologic/Lymphatic: Hematologic/Lymphatic: Reports no additional hematologic/lymphatic complaints Allergic/Immunologic: Allergic/Immunologic: Reports no additional allergic/immunologic complaints PMFSH Past Medical History Medical History Degenerative disc disease GERD (gastroesophageal reflux disease) Hypertension Hypertension Kidney stones Obesity Type 2 diabetes mellitus Type 2 diabetes mellitus Urolithiasis Surgical History Surgical History History of cholecystectomy History of cholecystectomy Social History Social History Smoking status: Never smoker Second hand tobacco smoke exposure: No Alcohol intake: never Alcohol use details: rare Substance use: never Substance use type: does not use Other substance usage details: edible marijuana Living arrangements: with family Gender identity (if verbalized by the patient): Male Spiritual care concerns: No Agree to blood products: Yes Exam Const: General:
[2023-01-19] MEDS: MAG HYDROX/ALUMINUM HYD/SIMETH 30 ML, PHENobarb/HYOSCY/ATROPINE/SCOP 32.4 MG, LIDOCAINE... PO (20:18)
[2023-01-19 20:35] LABS: Basophils Absolute Auto 0.09 K/mm3 (0.00-0.10); Basophils Percent Auto 0.9 % (0.0-1.0); Eosinophils Percent Auto 1.1 % (1.0-6.0); Hematocrit 45.5 % (40.0-54.0); Hemoglobin 15.3 g/dL (14.0-18.0); Immature Granulocyte Absolute 0.03 K/mm3 (0.00-0.00); Immature Granulocyte Percent A 0.3 % (0.0-0.0); Lymphocytes Absolute Auto 2.73 K/mm3 (1.10-4.50); Lymphocytes Percent Auto 28.8 % (18.0-42.0); Mean Corpuscular HGB Conc 33.6 g/dL (32.0-36.0); Mean Corpuscular Hemoglobin 28.4 pg (27.0-31.0); Mean Corpuscular Volume 84.6 fL (78.0-102.0); Mean Platelet Volume 10.8 fl (8.7-11.0); Monocytes Absolute Auto 0.73 K/mm3 (0.10-0.90); Monocytes Percent Auto 7.7 % (2.0-11.0); Neutrophils Absolute Auto 5.8 K/mm3 (1.7-7.2); Neutrophils Percent Auto 61.2 % (50.0-70.0); Platelet Count Result 241 K/mm3 (150-420); Red Blood Count 5.38 M/mm3 (4.70-6.10); Red Cell Distribution Width 12.7 % (11.6-14.4); White Blood Count 9.5 K/mm3 (4.8-10.8)
[2023-01-19 20:51] LABS: Alanine Aminotransferase 26 U/L (16-63); Albumin Level 3.8 g/dL (3.4-5.0); Alkaline Phosphatase 81 U/L (46-116); Anion Gap 8 mmol/L (8-16); Aspartate Amino Transferase < 10 U/L (15-37); Bilirubin,Total 0.4 mg/dL (0.00-1.00); Blood Urea Nitrogen 9 mg/dL (7-18); Calcium 9.6 mg/dL (8.5-10.1); Carbon Dioxide 31 mmol/L (21-32); Chloride 98 mmol/L (98-108); Estimated Glomerular Filt Rate > 60; Glucose 228 mg/dL (70-99); Osmolality Calculated 289 mOsm/kg (285-295); Potassium 3.9 mmol/L (3.5-5.1); Sodium 137 mmol/L (136-145); Total Protein 7.5 g/dL (6.4-8.2)
[2023-01-19 21:00] LABS: Lipase 518 U/L (16-77)
[2023-01-19 21:47] VITALS: RESP 20; TEMP 36.9; O2SAT 98
[2023-01-19 21:58] VITALS: BP 160/89; PULSE 82
== END 2023-01-19 21:55 | disposition home or self-care (01) ==
PROVIDERS: Emergency Provider Emergency Medicine; PCP Family Medicine
DX: K85.90 Acute pancreatitis without necrosis or infection, unspecified (principal); R11.2 Nausea with vomiting, unspecified; I10 Essential (primary) hypertension; E11.9 Type 2 diabetes mellitus without complications; Z79.899 Other long term (current) drug therapy; Z79.84 Long term (current) use of oral hypoglycemic drugs
CPT/HCPCS: 36415; 74019; 74176; 80053; 83690; 85025; 99284; A9270

== ENCOUNTER 2023-06-10 12:27 | Emergency (ER) | payer MEDICAID, SELFPAY ==
[2023-06-10] VITALS (11 sets, daily range): BP systolic 134–197; BP diastolic 68–126; PULSE 88–135; RESP 18–24; TEMP 36.4–37.1; O2SAT 95–98
--- NOTE | ~2023-06-10 | XR_ITS ---
EXAMINATION: XR knee RT 3V DATE: 06/10/2023 13:22 INDICATION: Generalized right knee pain post fall TECHNIQUE: Anteroposterior, sunrise and crosstable lateral views of the right knee were obtained COMPARISON: None. FINDINGS: Alignment is normal. No fracture. Joint spaces appear normal on nonweightbearing imaging. Small scle rotic bone island at the medial femoral condyle. No joint effusion/layering lipohemarthrosis. Soft ti ssues are unremarkable. IMPRESSION: 1. No right knee joint effusion or acute osseous abnormality. Reviewed, dictated and finalized at location A.
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
--- NOTE | ~2023-06-10 | XR_ITS ---
EXAMINATION: XR lumbar spine 2-3V DATE: 06/10/2023 13:21 INDICATION: Back injury post fall. TECHNIQUE: Anteroposterior and lateral views of the lumbar spine, and cone-down lateral view of the l umbosacral junction were obtained. COMPARISON: 04/13/22 FINDINGS: No interval change in 1-2 mm anterolisthesis L4 on L5. Vertebral body heights are normal. Mild disc h eight loss at L4-L5 and L5-S1. Moderate to severe mid to lower lumbar facet osteoarthritis. Sacral ar ches are intact. Mild bilateral sacroiliac osteoarthritis. Bilateral nephrolithiasis, the largest sto ne on the right measuring 1 cm. IMPRESSION: 1. Stable appearance of mild lower lumbar predominant spondylosis with 1-2 mm anterolisthesis L4 on L 5. Reviewed, dictated and finalized at location A. IMPRESSION: 1. Stable appearance of mild lower lumbar predominant spondylosis with 1-2 mm a nterolisthesis L4 on L5.
--- NOTE | 2023-06-10 12:30 | ECG_ITS ---
Measurements Intervals Hardy Rate: 107 P: 41 LA: 145 QRS: 10 QRSD: 101 T: 19 QT: 354 QTc: 474 Interpretive Statements SINUS TACHYCARDIA POSSIBLE LEFT ATRIAL ENLARGEMENT BORDERLINE ST-T WAVE ABNORMALITY- INF/LAT LEADS BASELINE ARTIFACT- I, II, III, AVR, AVL, AVF, V6 ABNORMAL ECG NO PREVIOUS ECG AVAILABLE FOR COMPARISON Electronically Signed On 06-10-2023 12:51:48 CDT by Eliu Dill D.O.
[2023-06-10 12:57] LABS: Basophils Absolute Auto 0.04 K/mm3 (0.00-0.10); Basophils Percent Auto 0.4 % (0.0-1.0); Eosinophils Absolute Auto 0.02 K/mm3 (0.02-0.50); Eosinophils Percent Auto 0.2 % (1.0-6.0); Hematocrit 46.9 % (40.0-54.0); Hemoglobin 15.3 g/dL (14.0-18.0); Immature Granulocyte Absolute 0.04 K/mm3 (0.00-0.00); Immature Granulocyte Percent A 0.4 % (0.0-0.0); Lymphocytes Absolute Auto 1.55 K/mm3 (1.10-4.50); Lymphocytes Percent Auto 14.3 % (18.0-42.0); Mean Corpuscular HGB Conc 32.6 g/dL (32-36); Mean Corpuscular Hemoglobin 26.6 pg (27.0-31.0); Mean Corpuscular Volume 81.6 fL (78.0-102.0); Mean Platelet Volume 10.5 fl (8.7-11.0); Monocytes Absolute Auto 0.85 K/mm3 (0.10-0.90); Monocytes Percent Auto 7.8 % (2.0-11.0); Neutrophils Absolute Auto 8.34 K/mm3 (1.70-7.20); Neutrophils Percent Auto 76.9 % (50.0-70.0); Platelet Count Result 256 K/mm3 (150-420); Red Blood Count 5.75 M/mm3 (4.70-6.10); Red Cell Distribution Width 12.7 % (11.6-14.4); White Blood Count 10.8 K/mm3 (4.8-10.8)
[2023-06-10] MEDS: LOSARTAN POTASSIUM 50 MG TABLET 100 MG PO (12:57)
[2023-06-10] MEDS: ACETAMINOPHEN 500 MG TABLET 1000 MG PO (12:57)
[2023-06-10] MEDS: TETANUS,DIPHTHERIA,AC PERTUSSIS ADULT 0.5 ML (ADACEL) IM (12:58)
[2023-06-10 13:02] LABS: Appearance Urine Clear (Clear); Bilirubin Urine 1+ (Negative); Blood Urine 1+ (Negative); Color Urine Yellow (Yellow); Glucose Urine UA 2+ (Negative); Ketones Urine 3+ (Negative); Leukocyte Esterase Ur Negative LEU/UL (Negative); Nitrate Urine Negative (Negative); Protein Urine 1+ (Negative); Specific Grav Ur 1.025 (1.010-1.020); Urobilinogen Urine 0.2 mg/dL (0.2-1.0)
[2023-06-10 13:08] LABS: Add Urine Microscopic? YES; Bacteria Urine Trace /hpf; Mucus Urine Moderate /lpf; WBC Urine 0-3 /hpf (0-3)
[2023-06-10 13:11] LABS: SARS-CoV-2 Ag Negative (Negative)
[2023-06-10 13:15] LABS: Amphetamine Screen Urine Negative (Negative); Barbiturate Screen Urine Negative (Negative); Benzodiazepines Screen Urine Negative (Negative); Cannabinoid Screen Urine Positive (Negative); Cocaine Screen Urine Negative (Negative); Methadone Screen Urine Negative (Negative); Opiate Screen Urine Negative (Negative); Phencyclidine Screen Urine Negative (Negative)
[2023-06-10 13:24] LABS: Alanine Aminotransferase 28 U/L (16-63); Alkaline Phosphatase 64 U/L (46-116); Anion Gap 14 mmol/L (8-16); Aspartate Amino Transferase 25 U/L (15-37); Bilirubin,Total 0.9 mg/dL (0.00-1.00); Blood Urea Nitrogen 5 mg/dL (7-18); Calcium 9.1 mg/dL (8.5-10.1); Carbon Dioxide 25 mmol/L (21-32); Chloride 100 mmol/L (98-108); Estimated CRCL calculation 127 ml/min; Estimated Glomerular Filt Rate > 60; Glucose 231 mg/dL (70-99); Osmolality Calculated 292 mOsm/kg (285-295); Potassium 3.4 mmol/L (3.5-5.1); Sodium 139 mmol/L (136-145); Total Protein 7.5 g/dL (6.4-8.2)
[2023-06-10 13:25] LABS: Acetaminophen < 2 ug/mL (10-30); Ethanol < 3 mg/dL (0-6)
[2023-06-10 13:26] LABS: Salicylate 0.3 mg/dL (2.8-20.0)
[2023-06-10] MEDS: POTASSIUM BICARBONATE 25 MEQ TABEF 50 MEQ PO (14:28)
[2023-06-10] MEDS: hydrALAZINE HCL 20 MG/ML VIAL 10 MG IV PUSH ×2 (14:29→16:50)
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
--- NOTE | 2023-06-10 18:40 | PC.NURSE ---
1620 pts paperwork sent to [facility] they stated they have an open bed 1800 [facility] called for update and message left
--- NOTE | 2023-06-10 18:48 | PC.NURSE ---
1848 pt denied at [facility] 1849 [facility] notified and will call back
--- NOTE | 2023-06-10 19:42 | PC.NURSE ---
1939: Spoke with Padmini from [facility] who states that she is calling around to some hospitals and waiting to hear back on possible admission ch[facility].
[2023-06-10] MEDS: KETOROLAC 30 MG/ML VIAL (*BKC) IV PUSH (19:56)
--- NOTE | 2023-06-10 22:02 | PC.NURSE ---
[facility] called to update that since the pt is self pay for insurance, it would be roughly $1500 per day. Pt made aware and declines admission there. Will continue trying other facilities.
--- NOTE | 2023-06-10 22:04 | PC.NURSE ---
Spoke to [facility] who was requesting more information on the patient. Phone call forwarded to pt room for intake information
--- NOTE | 2023-06-10 22:16 | PC.NURSE ---
Per pt, [facility] reported to him that they would likely be unable to accept due to pt not having been there before and him not having a psychiatric history.
--- NOTE | 2023-06-10 22:37 | PC.NURSE ---
After speaking with [facility], Pt is open to looking at placement at [facility]. Spoke with Glory at [facility] who states that since the patient is self pay, he would be required to pay half of the total upfront. Pt states he is unable to do so. Discussed with pt the possibility of following up as an outpatient to which pt states I know that I can't do that because I wont get the help I need, and then I'll end up in custodial or probably worse
--- NOTE | 2023-06-10 22:57 | PC.NURSE ---
Still waiting to hear back from [facility] on if they will be able to accept the patient. Pt updated and states that he is having some mild nausea. Dr. Manzo aware and verbal orders received for 4mg Zofran ODT for now.
[2023-06-10] MEDS: ONDANSETRON HCL ODT 4 MG TABLET PO (23:04)
--- NOTE | 2023-06-11 01:16 | PC.NURSE ---
0100 Pt has been accepted to [facility] under Dr. Bertrand. [facility] requesting we wait to call nurse to nurse report until 0130
[2023-06-11 01:47] VITALS: BP 155/77; PULSE 87; RESP 18; TEMP 36.4; O2SAT 97
== END 2023-06-11 02:39 ==
PROVIDERS: Emergency Provider Emergency Medicine; PCP Family Medicine
DX: R45.851 Suicidal ideations (principal); S92.421A Displaced fracture of distal phalanx of right great toe, initial encounter for closed fracture; W22.8XXA Striking against or struck by other objects, initial encounter; M54.9 Dorsalgia, unspecified; I10 Essential (primary) hypertension; E11.9 Type 2 diabetes mellitus without complications; K21.9 Gastro-esophageal reflux disease without esophagitis; Z79.84 Long term (current) use of oral hypoglycemic drugs; Z23 Encounter for immunization; F12.90 Cannabis use, unspecified, uncomplicated; Z11.52 Encounter for screening for COVID-19
CPT/HCPCS: 36415; 72100; 73562; 73630; 80053; 80307; 81001; 84443; 85025; 87426; 90715; 93005; 96372; 96374; 96375; 99285; A9270; J0360; J1885